=== PATIENT | male | born 1970 | race Two or more races ===

== ENCOUNTER 2022-11-11 13:09 | Inpatient (IN) | payer MEDICAID, OTHER ==
[~2022-11-11] VITALS: Ht 167.6 cm; Wt 118.3 kg
[2022-11-11 13:58] LABS: Calcium 9.5 mg/dL (8.5-10.1); Potassium 4.8 mmol/L (3.5-5.1)
[2022-11-11 14:01] LABS: BUN/Creatinine Ratio 15.7; Bilirubin, Total 0.4 mg/dL (0.2-1.0); Total Protein 7.8 g/dL (6.4-8.2)
[2022-11-11 14:28] LABS: Hematocrit 42.5 % (41.0-53.0); Mean Corpuscular Hemoglobin 27.4 pg (28.0-32.0); Mean Corpuscular Hgb Conc. 32.8 g/dL (32.0-36.0); Mean Corpuscular Volume 83.5 fL (80.0-100.0); Red Blood Cells 5.09 10^6/uL (4.5-5.90); Red Cell Distribution Width 17.1 % (11.8-14.3)
[2022-11-11 14:44] LABS: White Blood Cell 85.3 10^3/uL (4.4-10.8)
[2022-11-11 14:45] LABS: Basophils % (manual) 0 (0.0-2.0); Promyelocytes % 0
[2022-11-11] MEDS ORDERED: LISINOPRIL 10 MG TAB PO ONE (17:45)
[2022-11-11] MEDS ORDERED: ONDANSETRON HCL 4 MG/2 ML VIAL IV PRN (17:45)
[2022-11-11] MEDS ORDERED: HYDROcodone-ACET 5/325MG TAB PO PRN (17:45)
[2022-11-11] MEDS ORDERED: ACETAMINOPHEN 325 MG TAB PO PRN (17:45)
[2022-11-11] MEDS ORDERED: DOCUSATE SOD 100 MG CAP PO PRN (17:45)
[2022-11-11 19:30] LABS: Eosinophils % (manual) 2 (0-7); Lymphocytes % (manual) 5 (10.0-50.0); Metamyelocytes % 9; Monocytes % (manual) 10 (0-12); Myelocytes % 4
[2022-11-11 19:31] LABS: Reactive Lymphocytes 6
[2022-11-11 19:32] LABS: Band Neutrophils % (manual) 23; Blast Cells 4
[2022-11-11] MEDS: SODIUM CHLOR 0.9% PF (SALINE LOCK) 10ML VIAL/SYR IV SCH (22:35)
[2022-11-12 01:31] LABS: Urine Bacteria NONE SEEN /hpf (None Seen); Urine Blood Negative /uL (Negative); Urine Mucus FEW (None Seen); Urine Specific Gravity 1.019 (1.001-1.035); Urine WBC 1 /hpf (0 - 3)
[2022-11-12 05:57] LABS: Mean Corpuscular Volume 84.1 fL (80.0-100.0)
[2022-11-12 06:02] LABS: Hematocrit 40.4 % (41.0-53.0); Hemoglobin 13.7 g/dL (13.5-17.5); Mean Corpuscular Hemoglobin 28.4 pg (28.0-32.0); Mean Corpuscular Hgb Conc. 33.8 g/dL (32.0-36.0); Red Blood Cells 4.81 10^6/uL (4.5-5.90); Red Cell Distribution Width 17.5 % (11.8-14.3)
[2022-11-12] MEDS: SODIUM CHLOR 0.9% PF (SALINE LOCK) 10ML VIAL/SYR IV SCH ×3 (06:02→22:00)
[2022-11-12 06:15] LABS: Calcium 9.2 mg/dL (8.5-10.1); Potassium 4.6 mmol/L (3.5-5.1)
[2022-11-12 06:18] LABS: BUN/Creatinine Ratio 15.1; Bilirubin, Total 0.6 mg/dL (0.2-1.0); Total Protein 7.7 g/dL (6.4-8.2)
[2022-11-12 06:35] LABS: White Blood Cell 83.9 10^3/uL (4.4-10.8)
[2022-11-12 06:37] LABS: Blast Cells 0; Reactive Lymphocytes 0
[2022-11-12 08:05] LABS: Band Neutrophils % (manual) 17; Basophils % (manual) 4 (0.0-2.0); Eosinophils % (manual) 3 (0-7); Lymphocytes % (manual) 6 (10.0-50.0); Metamyelocytes % 5; Monocytes % (manual) 5 (0-12); Myelocytes % 4; Promyelocytes % 5
[2022-11-12] MEDS: PANTOPRAZOLE 40 MG/10 ML VIAL INJ IV SCH (11:15)
[2022-11-12] MEDS: LISINOPRIL 10 MG TAB PO SCH (11:33)
[2022-11-12 14:56] VITALS: BP 135/81
[2022-11-12 17:00] VITALS: BP 138/80
[2022-11-12 22:00] VITALS: BP 130/80
[2022-11-13 05:00] VITALS: BP 143/87
[2022-11-13] MEDS: SODIUM CHLOR 0.9% PF (SALINE LOCK) 10ML VIAL/SYR IV SCH ×3 (06:00→21:23)
[2022-11-13 06:10] LABS: Red Cell Distribution Width 17.3 % (11.8-14.3)
[2022-11-13 06:15] LABS: Potassium 3.9 mmol/L (3.5-5.1)
[2022-11-13 06:17] LABS: Hematocrit 40.8 % (41.0-53.0); Hemoglobin 13.6 g/dL (13.5-17.5); Mean Corpuscular Hemoglobin 27.7 pg (28.0-32.0); Mean Corpuscular Hgb Conc. 33.2 g/dL (32.0-36.0); Mean Corpuscular Volume 83.4 fL (80.0-100.0)
[2022-11-13 06:28] LABS: Albumin 3.7 g/dL (3.4-5.0); Bilirubin, Total 0.5 mg/dL (0.2-1.0); Total Protein 7.7 g/dL (6.4-8.2)
[2022-11-13 06:36] LABS: White Blood Cell 83.3 10^3/uL (4.4-10.8)
[2022-11-13 06:38] LABS: Basophils % (manual) 0 (0.0-2.0); Reactive Lymphocytes 0
[2022-11-13 09:00] VITALS: BP 146/84
[2022-11-13 09:13] LABS: Band Neutrophils % (manual) 12; Blast Cells 1; Eosinophils % (manual) 2 (0-7); Lymphocytes % (manual) 11 (10.0-50.0); Metamyelocytes % 11; Monocytes % (manual) 4 (0-12); Myelocytes % 2; Promyelocytes % 4
[2022-11-13 09:29] LABS: INR 1.03 (0.9-1.15); Partial Thromboplastin Time 28.8 sec (24.6-33.4)
[2022-11-13] MEDS: LISINOPRIL 10 MG TAB PO SCH (09:30)
[2022-11-13] MEDS: PANTOPRAZOLE 40 MG/10 ML VIAL INJ IV SCH (09:30)
[2022-11-13 13:00] VITALS: BP 143/92
[2022-11-13 17:00] VITALS: BP 141/79
[2022-11-13 22:00] VITALS: BP 124/65
[2022-11-14 05:00] VITALS: BP 126/75
[2022-11-14] MEDS: SODIUM CHLOR 0.9% PF (SALINE LOCK) 10ML VIAL/SYR IV SCH ×3 (05:28→22:53)
[2022-11-14 06:43] LABS: Hematocrit 40.6 % (41.0-53.0); Hemoglobin 13.3 g/dL (13.5-17.5); Mean Corpuscular Hemoglobin 27.5 pg (28.0-32.0); Mean Corpuscular Hgb Conc. 32.8 g/dL (32.0-36.0); Mean Corpuscular Volume 83.7 fL (80.0-100.0); Red Blood Cells 4.85 10^6/uL (4.5-5.90); Red Cell Distribution Width 17.2 % (11.8-14.3)
[2022-11-14 06:47] LABS: White Blood Cell 86.3 10^3/uL (4.4-10.8)
[2022-11-14 06:48] LABS: Basophils % (manual) 0 (0.0-2.0); Promyelocytes % 0; Reactive Lymphocytes 0
[2022-11-14 06:49] LABS: Calcium 9.2 mg/dL (8.5-10.1); Potassium 3.8 mmol/L (3.5-5.1)
[2022-11-14 06:51] LABS: BUN/Creatinine Ratio 19.8
[2022-11-14 08:50] LABS: Band Neutrophils % (manual) 24; Blast Cells 2; Eosinophils % (manual) 1 (0-7); Lymphocytes % (manual) 8 (10.0-50.0); Metamyelocytes % 5; Monocytes % (manual) 4 (0-12); Myelocytes % 9
[2022-11-14 09:00] VITALS: BP 135/88
[2022-11-14] MEDS: PANTOPRAZOLE 40 MG/10 ML VIAL INJ IV SCH (11:00)
[2022-11-14] MEDS: LISINOPRIL 10 MG TAB PO SCH (11:03)
[2022-11-14 13:00] VITALS: BP 118/78
[2022-11-14 17:00] VITALS: BP 116/76
[2022-11-14 22:00] VITALS: BP 114/60
[2022-11-15 05:00] VITALS: BP 124/77
[2022-11-15 07:02] LABS: Hematocrit 40.1 % (41.0-53.0); Red Cell Distribution Width 17.2 % (11.8-14.3)
[2022-11-15 07:06] LABS: Hemoglobin 13.6 g/dL (13.5-17.5); Mean Corpuscular Hemoglobin 28.3 pg (28.0-32.0); Mean Corpuscular Hgb Conc. 33.8 g/dL (32.0-36.0); Mean Corpuscular Volume 83.6 fL (80.0-100.0)
[2022-11-15 07:18] LABS: BUN/Creatinine Ratio 20.9; Calcium 9.3 mg/dL (8.5-10.1); Potassium 4.2 mmol/L (3.5-5.1)
[2022-11-15] MEDS: SODIUM CHLOR 0.9% PF (SALINE LOCK) 10ML VIAL/SYR IV SCH (07:18)
[2022-11-15 07:21] LABS: White Blood Cell 81.8 10^3/uL (4.4-10.8)
[2022-11-15 07:23] LABS: Basophils % (manual) 0 (0.0-2.0); Promyelocytes % 0; Reactive Lymphocytes 0
[2022-11-15 09:00] VITALS: BP 121/82
[2022-11-15] MEDS: LISINOPRIL 10 MG TAB PO SCH (09:28)
[2022-11-15] MEDS: PANTOPRAZOLE 40 MG/10 ML VIAL INJ IV SCH (09:30)
[2022-11-15] MEDS ORDERED: LIDOCAINE 2% (LOCAL ANESTH.) PF 5ml SDV ONE (10:24)
[2022-11-15] MEDS ORDERED: MIDAZOLAM HCL 2MG/2ML 2ml VIAL (1mg/ml) IV ONE (10:30)
[2022-11-15] MEDS ORDERED: fentaNYL CITRATE 100 MCG/2 ML VL IV ONE (10:30)
[2022-11-15 13:00] VITALS: BP 123/71
[2022-11-15 14:04] VITALS: BP 121/82
[2022-11-15 14:39] LABS: Band Neutrophils % (manual) 20; Blast Cells 2; Eosinophils % (manual) 3 (0-7); Lymphocytes % (manual) 11 (10.0-50.0); Metamyelocytes % 4; Monocytes % (manual) 3 (0-12); Myelocytes % 10
== END 2022-11-15 15:27 | disposition home or self-care (01) | DRG 841 ==
LOC: ER 13:13 → OVERFLOW 17:36 → EAST 11-12 14:26 → CENTRAL 11-12 16:33
PROVIDERS: ADMIT Nurse Practitioner Family; ATTEND Internal Medicine Pulmonary Disease
PROC: 079T3ZX Drainage of Bone Marrow, Percutaneous Approach, Diagnostic (ICD-10-PCS; principal; 2022-11-15)
PROC: 07DR3ZX Extraction of Iliac Bone Marrow, Percutaneous Approach, Diagnostic (ICD-10-PCS; 2022-11-15)
DX: C95.90 Leukemia, unspecified not having achieved remission (principal); Z68.41 Body mass index [BMI] 40.0-44.9, adult; I10 Essential (primary) hypertension; D75.839 Thrombocytosis, unspecified; E66.01 Morbid (severe) obesity due to excess calories; Z20.822 Contact with and (suspected) exposure to COVID-19; Z83.3 Family history of diabetes mellitus
CPT/HCPCS: 10005; 36415; 71045; 72192; 77012; 80048; 80053; 81001; 82668; 83615; 85007; 85027; 85610; 85730; 87426; C9113; G0378; J2001; J2250

== ENCOUNTER 2024-11-06 19:13 | Inpatient (IN) | payer MEDICAID ==
[~2024-11-06] VITALS: Ht 167.6 cm; Wt 125.7 kg
--- NOTE | 2024-11-06 19:40 | ED.PDOC ---
GI ASSESSMENT HPI Comments 54 y/o M, with PMHX of HTN, HLD, A-FIB and leukemia presents to the ED for CC of abdominal pain. Patient states, he has been experiencing diffuse abdominal pain with associated symptoms of nausea and vomiting since 1600 today (11/06/24). Patient comments on current 05/03 pain. Patient denies back pain, flank pain, dysuria, hematuria, or diarrhea. No other symptoms or modifying factors at this time. Time Seen by MD: 19:30 Primary Care Provider: NONE Reviewed Notes: Nurses Notes, Medications, Allergies Allergies: Coded Allergies: NO KNOWN ALLERGIES (Unverified , 11/11/22) Home Meds Unable to Obtain Active Prescriptions or Reported Meds Information Source: Patient Mode of Arrival: Ambulatory Timing: Hours Duration: Since onset Prehospital treatment: None Quality: None Vomitus: Watery Severity: Moderate Recent: None Pain Location: Diffuse Modifying Factors: Nothing Associated sign and symptoms: Nausea, Vomiting Past Medical History PAST MEDICAL HISTORY: AFIB, Cancer, High Lipids, HTN Surgical History: Appendectomy Family History Family History: Family hx of DM Social History Smoker: Non-Smoker Alcohol: Denies ETOH Use Drugs: Denies Drug Use Lives In: Home Constitutional: denies: chills, diaphoresis, fatigue, fever, malaise, sweats, weakness, others EENTM: denies: blurred vision, double vision, ear bleeding, ear discharge, ear drainage, ear pain, ear ringing, eye pain, eye redness, hearing loss, mouth pain, mouth swelling, nasal discharge, nose bleeding, nose congestion, nose pain, photophobia, tearing, throat pain, throat swelling, voice changes, others Respiratory: denies: cough, hemoptysis, orthopnea, SOB at rest, shortness of breath, SOB with excertion, stridor, wheezing, others Cardiovascular: denies: chest pain, dizzy spells, diaphoresis, Dyspnea on exertion, edema, irregular heart beat, left arm pain, lightheadedness, palpitati ons, PND, syncope, others Gastrointestinal: reports: abdominal pain; denies: abdomen distended, blood streaked bowels, constipated, diarrhea, dysphagia, difficulty swallowing, hematemesis, melena, nausea, poor appetite, poor fluid intake, rectal bleeding, rectal pain, vomiting, others Genitourinary: denies: burning, dysuria, flank pain, frequency, hematuria, incontinence, penile discharge, penile sore, pain, testicle pain, testicle swelling, urgency, others Neurological: denies: dizziness, fainting, headache, left sided numbness, left sided weakness, numbness, paresthesia, pre-existing deficit, right sided numbness, right sided weakness, seizure, speech problems, tingling, tremors, weakness, others Musculoskeletal: denies: back pain, gout, joint pain, joint swelling, muscle pa in, muscle stiffness, neck pain, others Integumetry: denies: bruises, change in color, change in hair/nails, dryness, laceration, lesions, lumps, rash, wounds, others Allergic/Immunocompromised: denies: Difficulty Healing, Frequent Infections, Hives, Itching, others Hematologic/Lymphatic: denies: anemia, blood clots, easy bleeding, easy bruising, swollen glands, others Endocrine: denies: excessive hunger, excessive sweating, excessive thirst, excessive urination, flushing, intolerance to cold, intolerance to heat, unexplained weight gain, unexplained weight loss, others Psychiatric: denies: anxiety, bipolar disorder, depression, hopeless, panic disorder, schizophrenia, sleepless, suicidal, others All Other Systems: Reviewed and Negative Physical Exam General Appearance: Moderate Distress HEENT: Normal ENT Inspection, Pharynx Normal, TMs Normal Neck: Full Range of Motion, Non-Tender, Normal, Normal Inspection Respiratory: Chest Non-Tender, Lungs Clear, No Accessory Muscle Use, No Respiratory Distress, Normal Breath Sounds Cardiovascular: No Edema, No JVD, No Murmur, No Gallop, Normal Peripheral Pulses, Regular Rate/Rhythm Breast Exam: Deferred Gastrointestinal: Epigastric, No Organomegaly, No Pulsatile Mass, Normal Bowel Sounds, Soft, Tenderness Genitalia: Deferred Pelvic: Deferred Rectal: Deferred Extremities: No calf tenderness, Normal capillary refill, Normal inspection, Normal range of motion, Non-tender, No pedal edema Musculoskeletal : Apperance: Normal Neurologic: Alert, seasonal clerk II-XII nml as Tested, No Motor Deficits, Normal Affect, Normal Mood, No Sensory Deficits Cerebellar Function: Normal Reflexes: Normal Skin: Dry, Normal Color, Warm Lymphatic: No Adenopathy Was a procedure done? Was a procedure done?: No GI differential Dx Differential Diagnosis: Bowel Obstruction, Cholangitis, Cholecystitis, Constip ation, Gastritis/PUD, Gastroenteritis, Electrolyte Imbalance, Food Poisoning, Bacterial, Viral X-Ray, Labs, Meds, VS Vital Signs Date Time Temp Pulse Resp B/P (MAP) Pulse Ox O2 Delivery O2 Flow Rate FiO2 11/06/24 21:02 98.4 66 18 120/63 (82) 96 98.4 11/06/24 21:02 66 18 96 Room Air 11/06/24 21:00 66 18 120/63 11/06/24 20:12 74 11/06/24 19:30 98.9 73 16 132/45 (74) 95 Lab Test 11/06/24 20:52 Range/Units White Blood Count Pending Red Blood Count Pending Hemoglobin Pending Hematocrit Pending Mean Corpuscular Volume Pending Mean Corpuscular Hemoglobin Pending Mean Corpuscular Hemoglobin Concent Pending Red Cell Distribution Width Pending Platelet Count Pending Mean Platelet Volume Pending Neutrophils (%) (Auto) Pending Lymphocytes (%) (Auto) Pending Monocytes (%) (Auto) Pending Basophils (%) (Auto) Pending Neutrophils # (Auto) Pending Lymphocytes # (Auto) Pending Monocytes # (Auto) Pending Sodium Level Pending Potassium Level Pending Chloride Level Pending Carbon Dioxide Level Pending Anion Gap Pending Blood Urea Nitrogen Pending Creatinine Pending Glomerular Filtration Rate Calc Pending BUN/Creatinine Ratio Pending Serum Glucose Pending Calcium Level Pending Total Bilirubin Pending Aspartate Amino Transferase (AST) Pending Alanine Aminotransferase (ALT) Pending Alkaline Phosphatase Pending Total Protein Pending Albumin Pending Lipase Pending Current Medications Medications (Trade) Dose Ordered Sig/Caroline Route Start Time Stop Time Status Last Admin Morphine Sulfate 4 mg ONCE ONCE IV 11/06/24 19:45 11/06/24 19:46 DC 11/06/24 21:00 Sodium Chloride 500 ml @ 500 mls/hr Q1H ONCE IVB 11/06/24 19:45 11/06/24 20:44 DC 11/06/24 20:58 Pantoprazole Sodium (Protonix) 40 mg ONCE ONCE IV 11/06/24 19:45 11/06/24 19:46 DC 11/06/24 20:59 Ondansetron HCl (Zofran) 4 mg ONCE ONCE IV 11/06/24 19:45 11/06/24 19:46 DC 11/06/24 20:59 GALLBLADDER US: FINDINGS: Increased echogenicity of the hepatic parenchyma suggesting steat osis.. The liver measures 14.8 cm. No intrahepatic biliary ductal dilatation is noted. The gallbladder wall measures 0.32 cm and is unremarkable. No gallstones mobile sludge is noted in the gallbladder.. The common duct measures 0.56 cm and is unremarkable. No pericholecystic fluid is noted. The right kidney measures 11.6 cm. No hydronephrosis. The pancreas is not well visualized due to obscuration from bowel gas. IMPRESSION: 1. Sludge noted in the gallbladder with a negative ultrasound Estrella's sign. 2. Liver measures 14 0.8 cm in length with parenchymal changes suggesting steatosis. HS:Y ATED BY: WOODY GEIGER Jr., DO DICTATED DATE/TIME: 11/06/242022 SIGNED BY: WOODY GEIGER Jr., SIGNED DATE/TIME: 11/06/242022 CC: The patient was being admitted at this time The patient was given morphine for the pain The patient was given Zofran 4 mg IV push for the nausea The patient was given Protonix 40 mg IV push The patient was being admitted at this time Images Reviewed?: Images reviewed and evaluated by me Time of 1ST Reevaluation: 20:00 Reevaluation 1ST: Unchanged Patient Education/Counseling: Diagnosis, Treatment, Prognosis Family Education/Counseling: No Family Present Additional Information - I reviewed the following notes from patient's past medical encounters: 11/11/24 DX: LEUKOCYTOSIS - The following tests were ordered, and results were reviewed by me: CBC, CMP, LIPASE, UA, GALLBLADDER US - I reviewed and agreed with the following test results read by other provider: GALLBLADDER US - I discussed treatments and results with medical personnel and: PATIENT Departure 1 Departure Time of Disposition: 21:09 Impression: Primary Impression: Intractable abdominal pain Additional Impression: Cholelithiasis Qualified Codes: K80.20 - Calculus of gallbladder without cholecystitis without obstruction Disposition: ADMITTED INPATIENT Admit to: Med Surg Condition: Fair e-Prescriptions Unable to Obtain Active Prescriptions or Reported Meds Critical Care Note Critical Care Time?: No Stability Stability form required: Yes Unstable for transfer: ED Physician Assesment (Clinical assesment) Heart Score Heart Score: Heart Score Response (Comments) Value History N/A 0 EKG N/A 0 Age N/A 0 Risk Factors N/A 0 Troponin N/A 0 Total 0 I personally scribed for LIZBETH ZHOU MD ([email or web address]) on 11/06/24 at 19:40. Electronically submitted by Jolynn Dunn ([email or web address]). I personally scribed for LIZBETH ZHOU MD ([email or web address]) on 11/06/24 at 19:41. Electronically submitted by Jolynn Dunn ([email or web address]). I personally scribed for LIZBETH ZHOU MD ([email or web address]) on 11/06/24 at 19:47. Electronically submitted by Jolynn Dunn ([email or web address]). I personally scribed for LIZBETH ZHOU MD ([email or web address]) on 11/06/24 at 20:08. Electronically submitted by Jolynn Dunn ([email or web address]). I personally scribed for LIZBETH ZHOU MD ([email or web address]) on 11/06/24 at 20:45. Electronically submitted by Jolynn Dunn ([email or web address]). LIZBETH ZHOU MD Nov 06, 2024 19:40
--- NOTE | 2024-11-06 20:25 | DVH ---
INDICATION: pain TECHNIQUE: Multiple real-time sonographic images of the abdomen were obtained. COMPARISON: None FINDINGS: Increased echogenicity of the hepatic parenchyma suggesting steatosis.. The liver measures 14.8 cm. No intrahepatic biliary ductal dilatation is noted. The gallbladder wall measures 0.32 cm and is unremarkable. No gallstones mobile sludge is noted in the gallbladder.. The common duct measures 0.56 cm and is unremarkable. No pericholecystic fluid is noted. The right kidney measures 11.6 cm. No hydronephrosis. The pancreas is not well visualized due to obscuration from bowel gas. IMPRESSION: 1. Sludge noted in the gallbladder with a negative ultrasound Estrella's sign. 2. Liver measures 14 0.8 cm in length with parenchymal changes suggesting steatosis. HS:Y
[2024-11-06] MEDS: SODIUM CHLORIDE 0.9% 500 ML IVB ONE (20:58)
[2024-11-06] MEDS: ONDANSETRON HCL 4 MG/2 ML VIAL IV ONE (20:59)
[2024-11-06] MEDS: PANTOPRAZOLE 40 MG/10 ML VIAL INJ IV ONE (20:59)
[2024-11-06] MEDS: MORPHINE SULFATE 4 MG/ML SYR/VIAL IV ONE (21:00)
[2024-11-06 21:01] LABS: Basophils # (auto) 0 10 ^3/uL (0-0.2); Basophils % (auto) 0.4 % (0.0-2.0); Eosinophils # (auto) 0 10 ^3/uL (0-0.8); Eosinophils % (auto) 0.3 % (0.0-7.0); Hematocrit 38.4 % (41.0-53.0); Hemoglobin 12.8 g/dL (13.5-17.5); Lymphocytes # (auto) 1.6 10 ^3/uL (0.4-5.4); Lymphocytes % (auto) 15.7 % (10.0-50.0); Mean Corpuscular Hemoglobin 28.9 pg (28.0-32.0); Mean Corpuscular Hgb Conc. 33.3 g/dL (32.0-36.0); Mean Corpuscular Volume 86.8 fL (80.0-100.0); Monocytes # (auto) 0.4 10 ^3/uL (0-1.3); Monocytes % (auto) 3.5 % (0.0-12.0); Neutrophils # (auto) 8.2 10 ^3/uL (1.6-8.6); Neutrophils % (auto) 80.1 % (37.0-80.0); Platelet Count (auto) 212 10^3/uL (140-450); Red Blood Cells 4.43 10^6/uL (4.5-5.90); Red Cell Distribution Width 15.2 % (11.8-14.3); White Blood Cell 10.2 10^3/uL (4.4-10.8)
[2024-11-06 21:21] LABS: Alanine Aminotransferase 28 U/L (7-40); Alkaline Phosphatase 95 U/L (46-116); Anion Gap 9 (5-15); Aspartate Aminotransferase 16 U/L (13-40); BUN/Creatinine Ratio 15.6 (10.0-20.0); Bilirubin, Total 0.6 mg/dL (0.2-1.0); Blood Urea Nitrogen 17 mg/dL (9-23); Carbon Dioxide 23 mmol/L (20-31); Chloride 105 mmol/L (98-107); Lipase 43 U/L (12-53); Potassium 4.1 mmol/L (3.5-5.1); Sodium 137 mmol/L (136-145); Total Protein 8.1 g/dL (5.7-8.2)
[2024-11-06 21:23] LABS: Urine Bacteria None Seen /hpf (None Seen)
[2024-11-06 21:52] LABS: Urine Blood Negative /uL (Negative); Urine Clarity Clear (Clear); Urine Color Light-Yellow (Yellow); Urine Protein, UAD 1+ (Negative); Urine Squamous Epithelial Cell FEW /hpf (<5); Urine Urobilinogen Normal (Negative); Urine WBC 2 /HPF (0-3); Urine pH 5.5 (5.0-9.0)
[2024-11-06 21:52] LABS: Albumin 5.2 g/dL (3.2-4.8); Calcium 10.6 mg/dL (8.7-10.4); Glucose 135 mg/dL (74-106)
[2024-11-06] MEDS ORDERED: MORPHINE SULFATE INJ 2 MG/ml SYRG IV PRN ×2 (22:00→22:45)
[2024-11-06] MEDS ORDERED: DOCUSATE SOD 100 MG CAP PO PRN (22:00)
[2024-11-06] MEDS ORDERED: ACETAMINOPHEN 325 MG TAB PO PRN (22:00)
[2024-11-06] MEDS ORDERED: HYDROcodone-ACET 5/325MG TAB PO PRN (22:00)
[2024-11-06] MEDS ORDERED: ONDANSETRON HCL 4 MG/2 ML VIAL IV PRN (22:00)
[2024-11-06] MEDS ORDERED: NITROGLYCERIN 0.4 MG SL TAB SL PRN (22:45)
--- NOTE | 2024-11-06 22:46 | DVHHP2 ---
History of Present Illness Reason for Visit: Intractable abdominal pain History of Present Illness The patient is a 54-year-old male with past medical history of AFib, leukemia, hypertension, and hyperlipidemia who presented to [facility] ED with complaint of abdominal pain. Patient reports he has been experiencing diffuse abdominal pain, associated nausea and vomiting, rating pain 8/10 numeric scale, getting worse that prompted this visit. Patient was seen and evaluated in the ED, laboratory data shows WBC 10.2, hemoglobin 12.8, hematocrit 38.4, platelets 212. Gallbladder ultrasound revealing sludge noted in the gallbladder with a negative ultrasound Estrella's sign; liver measures 14.8 cm in length with parenchymal changes suggesting steatosis. Patient was given IV morphine 4 mg x 1, please see medication orders section in the computer. On my assessment, patient denied abdomen pain at this moment, no headache, no dizziness, no nausea, no vomiting, no fever, no chills. Patient was admitted for further evaluation and medical management. 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 Past Social History The patient lives at home, denies smoking, alcohol or illicit drugs abuse. Review of Systems Constitutional: No: Fever, Chills, Sweats, Weakness, Malaise, Other Eyes: No: Pain, Vision change, Conjunctivae inflammation, Eyelid inflammation, Other, Redness ENT: No: Ear pain, Ear discharge, Nose pain, Nose discharge, Nose congestion, Mouth pain, Mouth swelling, Throat pain, Throat swelling, Other Respiratory: No: Cough, Dry, Shortness of breath, SOB with excertion, Wheezing, Hemoptysis, Pleuritic Pain, Sputum, Wheezing, Other Cardiovascular: No: Chest Pain, Palpitations, Orthopnea, Paroxysmal Noc. Dyspnea, Edema, Lt Headedness, Other Gastrointestinal: Nausea, Vomiting, Abdominal Pain; No: Diarrhea, Constipation, Melena, Hematochezia, Other Genitourinary: No Dysuria, No Frequency, No Incontinence, No Hematuria, No Retention, No Other Musculoskeletal: No: other, neck pain, shoulder pain, arm pain, back pain, hand pain, leg pain, foot pain Skin: No: Rash, Lesions, Jaundice, Bruising, Other Neurological: No: Weakness, Numbness, Incoordination, Change in speech, Confusion, Seizures, Other Allergies: Coded Allergies: NO KNOWN ALLERGIES (Unverified , 11/11/22) Medications Current Medications Medications Dose Ordered Sig/Caroline Route Start Time Stop Time Status Last Admin Dose Admin Pantoprazole Sodium 40 mg DAILY IV 11/07/24 10:00 Acetaminophen/ Hydrocodone Bitart 1 tab Q4HP PRN PO 11/06/24 22:00 Ondansetron HCl 4 mg Q4HP PRN IV 11/06/24 22:00 Docusate Sodium 100 mg BIDPRN PRN PO 11/06/24 22:00 Acetaminophen 650 mg Q6HP PRN PO 11/06/24 22:00 Morphine Sulfate 2 mg Q4HPRN PRN IV 11/06/24 22:00 Exam Vital Signs Vital Signs Date Time Temp Pulse Resp B/P (MAP) Pulse Ox O2 Delivery O2 Flow Rate FiO2 11/06/24 22:10 97.8 57 16 130/71 (90) 98 97.8 11/06/24 21:02 Room Air General Appearance: Alert, Oriented X3, Cooperative, No acute distress HEENT: Atraumatic, PERRLA, EOMI, Mucous membr. moist/pink Respiratory: Clear to auscultation, Normal air movement Cardiovascular: Regular rate, Normal S1, Normal S2, No murmurs Abdominal: Normal bowel sounds, Soft, No hepatospenomegaly, No masses, Other (Reports tenderness) Extremities: No clubbing, No cyanosis, No edema, Normal pulses, No tenderness/swelling Skin: No rashes, No breakdown, No significant lesion Neuro: Normal gait, Normal speech, Strength at 5/5 X4 ext, Normal tone, Sensation intact, Cranial nerves 3-12 NL, Reflexes 2+ Psych/Mental Status: Mental status NL, Mood NL Labs/Xrays Labs Test 11/06/24 21:36 11/06/24 21:22 11/06/24 20:52 Range/Units POC Glucose 159 H 70-106 mg/dl Urine Color Light-yellow Yellow Urine Clarity Clear Clear Urine pH 5.5 5.0-9.0 Urine Specific [place] 1.030 1.001-1.035 Urine Protein 1+ H Negative Urine Ketones Negative Negative Urine Blood Negative Negative /uL Urine Nitrite Negative Negative Urine Bilirubin Negative Negative Urine Urobilinogen Normal Negative mg/dL Urine Leukocyte Esterase Negative Negative /uL Urine RBC <1 0 - 3 /hpf Urine Microscopic WBC 2 0-3 /HPF Urine Squamous Epithelial Cells Few <5 /hpf Urine Bacteria None seen None Seen /hpf Urine Glucose 4+ H Normal mg/dL White Blood Count 10.2 4.4-10.8 10^3/uL Red Blood Count 4.43 L 4.5-5.90 10^6/uL Hemoglobin 12.8 L 13.5-17.5 g/dL Hematocrit 38.4 L 41.0-53.0 % Mean Corpuscular Volume 86.8 80.0-100.0 fL Mean Corpuscular Hemoglobin 28.9 28.0-32.0 pg Mean Corpuscular Hemoglobin Concent 33.3 32.0-36.0 g/dL Red Cell Distribution Width 15.2 H 11.8-14.3 % Platelet Count 212 140-450 10^3/uL Mean Platelet Volume 7.3 6.9-10.8 fL Neutrophils (%) (Auto) 80.1 H 37.0-80.0 % Lymphocytes (%) (Auto) 15.7 10.0-50.0 % Monocytes (%) (Auto) 3.5 0.0-12.0 % Eosinophils (%) (Auto) 0.3 0.0-7.0 % Basophils (%) (Auto) 0.4 0.0-2.0 % Neutrophils # (Auto) 8.2 1.6-8.6 10 ^3/uL Lymphocytes # (Auto) 1.6 0.4-5.4 10 ^3/uL Monocytes # (Auto) 0.4 0-1.3 10 ^3/uL Eosinophils # (Auto) 0 0-0.8 10 ^3/uL Basophils # (Auto) 0 0-0.2 10 ^3/uL Nucleated Red Blood Cells 0.0 % Sodium Level 137 136-145 mmol/L Potassium Level 4.1 3.5-5.1 mmol/L Chloride Level 105 98-107 mmol/L Carbon Dioxide Level 23 20-31 mmol/L Anion Gap 9 5-15 Blood Urea Nitrogen 17 9-23 mg/dL Creatinine 1.09 0.700-1.30 mg/dL Glomerular Filtration Rate Calc 80 >90 mL/min BUN/Creatinine Ratio 15.6 10.0-20.0 Serum Glucose 135 H 74-106 mg/dL Calcium Level 10.6 H 8.7-10.4 mg/dL Total Bilirubin 0.6 0.2-1.0 mg/dL Aspartate Amino Transferase (AST) 16 13-40 U/L Alanine Aminotransferase (ALT) 28 7-40 U/L Alkaline Phosphatase 95 46-116 U/L Total Protein 8.1 5.7-8.2 g/dL Albumin 5.2 H 3.2-4.8 g/dL Lipase 43 12-53 U/L PATIENT: GABRIEL QUINONES ACCT: [id number] UNIT: [id number] : 1970 LOC: ER ROOM / BED: / AGE / SEX: 54 / M ADM STATUS: REG ER SERVICE 33 ORDERING PHYSICIAN: LIZEBTH ZHOU MD PROCEDURE(s): GBUS - GALLBLADDER REASON: pain ORDER NUMBER(s): [id number], ACCESSION NUMBER(s): [id number] INDICATION: pain TECHNIQUE: Multiple real-time sonographic images of the abdomen were obtained. COMPARISON: None FINDINGS: Increased echogenicity of the hepatic parenchyma suggesting steatosis. The liver measures 14.8 cm. No intrahepatic biliary ductal dilatation is noted. The gallbladder wall measures 0.32 cm and is unremarkable. No gallstones mobile sludge is noted in the gallbladder. The common duct measures 0.56 cm and is unremarkable. No pericholecystic fluid is noted. The right kidney measures 11.6 cm. No hydronephrosis. The pancreas is not well visualized due to obscuration from bowel gas. IMPRESSION: 1. Sludge noted in the gallbladder with a negative ultrasound Estrella's sign. 2. Liver measures 14 0.8 cm in length with parenchymal changes suggesting steatosis. Assessment/Plan Assessment/Plan Intractable abdominal pain Cholelithiasis Calculus of gallbladder without cholecystitis without obstruction Plan 1. Admit to Med-Surg unit 2. Breathing treatment 3. Pain control management 4. Management of fluids and electrolytes 5. Consultation for hospitalist 6. Diagnostic tests gallbladder ultrasound 7. DVT prophylaxis-on SCDs 8. Repeat labs CBC, CMP in a.m. 9. Continue with current medical management 10. Treatment plan discussed with patient and RN. Patient verbalized understanding. Plan discussed with: Patient, Other (RN) My Orders Orders - BEST SHARMA DNP Procedure Category Date Status Time Pantoprazole PHA 11/07/24 In Process (Protonix) 10:00 Allergies HAKEME 11/06/24 In Process 21:59 Code Status CODE 11/06/24 Transmitted 21:59 Oxygen Per Hour RT 11/06/24 Transmitted 21:59 Hydrocodone-Acet PHA 11/06/24 In Process 5/325mg Tab ([place] 22:00 Ondansetron Hcl PHA 11/06/24 In Process (Zofran) 22:00 Docusate Sodium PHA 11/06/24 In Process Capsule (Colace 22:00 Complete Blood Count LAB 11/07/24 Verified 04:00 Comprehensive LAB 11/07/24 Verified Metabolic Panel 04:00 Condition: Serious HAKEEM 11/06/24 In Process 21:59 Acetaminophen Tablet PHA 11/06/24 In Process (Tylenol Tablet) 22:00 Clear Liq Diet DIET 11/07/24 Transmitted Breakfast Bedrest With Bathroom HAKEEM 11/06/24 In Process Privileg 21:59 Morphine Sulfate PHA 11/06/24 In Process Injection 22:00 Sequential HAKEEM 11/06/24 In Process Compression Device Problem List: (1) Intractable abdominal pain (2) Cholelithiasis (3) Calculus of gallbladder without cholecystitis without obstruction Date of Service: Nov 06, 2024 Billing Provider: BEST SHARMA DNP Common Visit Codes: 83285-IPZTOPY INP/OBS CARE (HIGH) BEST SHARMA DNP Nov 06, 2024 22:46
[2024-11-06 23:15] VITALS: BP 114/47; PULSE 79; RESP 18; TEMP 97.7; O2SAT 96
[2024-11-06] MEDS ORDERED: ATOR20TA50 PO (23:45)
[2024-11-06] MEDS ORDERED: AMLO1TAB22 PO (23:45)
[2024-11-06] MEDS ORDERED: DASA20TA PO (23:45)
[2024-11-06] MEDS ORDERED: MET25T PO (23:45)
[2024-11-06] MEDS ORDERED: LISI20TA56 PO (23:45)
[2024-11-06] MEDS ORDERED: SPIR25TA8 PO (23:45)
[2024-11-06] MEDS ORDERED: EMPA1TAB3 PO (23:45)
[2024-11-06] MEDS ORDERED: APIX5TAB PO (23:45)
[2024-11-07 01:00] VITALS: BP 112/46; PULSE 79; RESP 18; TEMP 97.6; O2SAT 98
[2024-11-07 04:33] VITALS: BP 116/52; PULSE 72; RESP 18; TEMP 97.6; O2SAT 98
[2024-11-07 08:45] LABS: Basophils # (auto) 0 10 ^3/uL (0-0.2); Basophils % (auto) 0.4 % (0.0-2.0); Eosinophils # (auto) 0.1 10 ^3/uL (0-0.8); Eosinophils % (auto) 0.8 % (0.0-7.0); Hematocrit 36.1 % (41.0-53.0); Lymphocytes # (auto) 1.7 10 ^3/uL (0.4-5.4); Lymphocytes % (auto) 26.9 % (10.0-50.0); Mean Corpuscular Hemoglobin 28.8 pg (28.0-32.0); Mean Corpuscular Hgb Conc. 33.2 g/dL (32.0-36.0); Mean Corpuscular Volume 86.9 fL (80.0-100.0); Monocytes # (auto) 0.5 10 ^3/uL (0-1.3); Monocytes % (auto) 7.9 % (0.0-12.0); Neutrophils # (auto) 4.1 10 ^3/uL (1.6-8.6); Platelet Count (auto) 211 10^3/uL (140-450); Red Blood Cells 4.16 10^6/uL (4.5-5.90); Red Cell Distribution Width 14.6 % (11.8-14.3); White Blood Cell 6.4 10^3/uL (4.4-10.8)
[2024-11-07] MEDS: PANTOPRAZOLE 40 MG/10 ML VIAL INJ IV SCH (08:57)
[2024-11-07 09:00] VITALS: BP 107/61; PULSE 65; RESP 18; TEMP 97.8; O2SAT 95
[2024-11-07 09:03] LABS: Alanine Aminotransferase 25 U/L (7-40); Albumin 4.8 g/dL (3.2-4.8); Alkaline Phosphatase 85 U/L (46-116); Anion Gap 10 (5-15); Aspartate Aminotransferase 14 U/L (13-40); BUN/Creatinine Ratio 15.8 (10.0-20.0); Bilirubin, Total 0.7 mg/dL (0.2-1.0); Blood Urea Nitrogen 15 mg/dL (9-23); Calcium 10.2 mg/dL (8.7-10.4); Carbon Dioxide 25 mmol/L (20-31); Chloride 104 mmol/L (98-107); Glucose 95 mg/dL (74-106); Potassium 3.9 mmol/L (3.5-5.1); Sodium 139 mmol/L (136-145); Total Protein 7.6 g/dL (5.7-8.2)
[2024-11-07] MEDS: ENOXAPARIN SOD 100 MG/1 ML SYRINGE SC SCH (09:10)
--- NOTE | 2024-11-07 09:20 | ECG ---
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
[2024-11-07 12:05] VITALS: BP 102/62; PULSE 92; RESP 16; TEMP 98; O2SAT 95
[2024-11-07 13:00] VITALS: BP 119/68; PULSE 72; RESP 14; TEMP 98.6; O2SAT 95
[2024-11-07] MEDS: DASATINIB 100 MG PO SCH (13:11)
--- NOTE | 2024-11-07 14:33 | DVHDSRES ---
Discharge Summary Date of Admission Resident Creating Document: JADEN CHAUDHARI RESIDENT Nov 06, 2024 at 22:45 Date of Discharge: Nov 07, 2024 Admitting Diagnosis Acute intractable abdominal pain Labs/Diagnostic Data: Laboratory Results Test 11/07/24 08:19 11/06/24 21:36 11/06/24 21:22 11/06/24 20:52 White Blood Count 6.4 10^3/uL (4.4-10.8) Red Blood Count 4.16 10^6/uL (4.5-5.90) Hemoglobin 12.0 g/dL (13.5-17.5) Hematocrit 36.1 % (41.0-53.0) Mean Corpuscular Volume 86.9 fL (80.0-100.0) Mean Corpuscular Hemoglobin 28.8 pg (28.0-32.0) Mean Corpuscular Hemoglobin Concent 33.2 g/dL (32.0-36.0) Red Cell Distribution Width 14.6 % (11.8-14.3) Platelet Count 211 10^3/uL (140-450) Mean Platelet Volume 7.3 fL (6.9-10.8) Neutrophils (%) (Auto) 64.0 % (37.0-80.0) Lymphocytes (%) (Auto) 26.9 % (10.0-50.0) Monocytes (%) (Auto) 7.9 % (0.0-12.0) Eosinophils (%) (Auto) 0.8 % (0.0-7.0) Basophils (%) (Auto) 0.4 % (0.0-2.0) Neutrophils # (Auto) 4.1 10 ^3/uL (1.6-8.6) Lymphocytes # (Auto) 1.7 10 ^3/uL (0.4-5.4) Monocytes # (Auto) 0.5 10 ^3/uL (0-1.3) Eosinophils # (Auto) 0.1 10 ^3/uL (0-0.8) Basophils # (Auto) 0 10 ^3/uL (0-0.2) Nucleated Red Blood Cells 0.0 % Sodium Level 139 mmol/L (136-145) Potassium Level 3.9 mmol/L (3.5-5.1) Chloride Level 104 mmol/L (98-107) Carbon Dioxide Level 25 mmol/L (20-31) Anion Gap 10 (5-15) Blood Urea Nitrogen 15 mg/dL (9-23) Creatinine 0.95 mg/dL (0.700-1.30) Glomerular Filtration Rate Calc 94 mL/min (>90) BUN/Creatinine Ratio 15.8 (10.0-20.0) Serum Glucose 95 mg/dL (74-106) Calcium Level 10.2 mg/dL (8.7-10.4) Total Bilirubin 0.7 mg/dL (0.2-1.0) Aspartate Amino Transferase (AST) 14 U/L (13-40) Alanine Aminotransferase (ALT) 25 U/L (7-40) Alkaline Phosphatase 85 U/L (46-116) Total Protein 7.6 g/dL (5.7-8.2) Albumin 4.8 g/dL (3.2-4.8) POC Glucose 159 mg/dl (70-106) Urine Color Light-yellow (Yellow) Urine Clarity Clear (Clear) Urine pH 5.5 (5.0-9.0) Urine Specific [place] 1.030 (1.001-1.035) Urine Protein 1+ (Negative) Urine Ketones Negative (Negative) Urine Blood Negative /uL (Negative) Urine Nitrite Negative (Negative) Urine Bilirubin Negative (Negative) Urine Urobilinogen Normal mg/dL (Negative) Urine Leukocyte Esterase Negative /uL (Negative) Urine RBC <1 /hpf (0 - 3) Urine Microscopic WBC 2 /HPF (0-3) Urine Squamous Epithelial Cells Few /hpf (<5) Urine Bacteria None seen /hpf (None Seen) Urine Glucose 4+ mg/dL (Normal) Lipase 43 U/L (12-53) Other Laboratory Tests 11/07/24 08:19 Brief Hx & Hospital Course: The patient is a 54-year-old male with past medical history of AFib, leukemia, hypertension, and hyperlipidemia who presented to [facility] ED with complaint of abdominal pain. Patient reports he has been experiencing diffuse abdominal pain, associated nausea and vomiting, rating pain 8/10 numeric scale, getting worse that prompted this visit. Patient was seen and evaluated in the ED, laboratory data shows WBC 10.2, hemoglobin 12.8, hematocrit 38.4, platelets 212. Gallbladder ultrasound revealing sludge noted in the gallbladder with a negative ultrasound Estrella's sign; liver measures 14.8 cm in length with parenchymal changes suggesting steatosis. Hospital course: Patient's pain significantly improved. No tenderness to palpation was noted in all quadrants of the abdomen. Diet was advanced to a regular diet which the patient tolerated without any nausea or vomiting. At the time of discharge, patient appeared well and had stable vital signs. Patient was instructed to follow up with surgery in the outpatient clinic for possible elective cholecystectomy. His hospital course was uncomplicated. General Appearance: Alert, Oriented X3, Cooperative, No acute distress HEENT: Atraumatic, PERRLA, EOMI, Mucous membr. moist/pink Respiratory: Clear to auscultation, Normal air movement Cardiovascular: Regular rate, Normal S1, Normal S2, No murmurs Abdominal: Normal bowel sounds, Soft, No hepatospenomegaly, No masses, Other (Reports tenderness) Extremities: No clubbing, No cyanosis, No edema, Normal pulses, No tenderness/swelling Skin: No rashes, No breakdown, No significant lesion Neuro: Normal gait, Normal speech, Strength at 5/5 X4 ext, Normal tone, Sensation intact, Cranial nerves 3-12 NL, Reflexes 2+ Psych/Mental Status: Mental status NL, Mood NL Condition at Discharge: Good Final Diagnosis/Problems List Acute intractable abdominal pain Biliary colic Gallbladder sludge Hepatic steatosis History of AFib Secondary hypercoagulable state secondary to above History of chronic myelogenous leukemia History of congestive heart failure, currently stable Discharge Disposition: Home Discharge Instruct/Medications Diet: Cardiac 2g Na,low cholest Follow Up/Referral: Please follow up with PCP in 1-2 weeks Please follow up with surgery in the outpatient clinic for possible elective cholecystectomy Discharge Statement: "Patient was advised to return to the ER or call 911 if any headaches, dizziness, shortness of breath, chest pain, abdominal pain, bleeding, fevers, or worsening of medical condition. Patient was counseled about treatment plan, medications, possible side effects, patientverbalized understanding. All questions were answered to the best of my ability. This discharge took greater then 30 minutes in planning, reviewing documentation, counseling the patient, and discussing with other team members." ASSESSMENT ASSESSMENT Assessment Date of Service: Nov 07, 2024 Billing Provider: TALITA HARRINGTON MD Common Visit Codes: 41837-XJK/OBS DISCH DAY >30min JADEN CHAUDHARI Nov 07, 2024 14:33 TALITA HARRINGTON MD Nov 11, 2024 16:09
--- NOTE | 2024-11-10 13:15 | ECG ---
[facility] Test Date: 2024-11-07 Test Time: 08:31:41 Pat Name: GABRIEL QUINONES Department: ED Room: [address] [place] [address] Gender: M Community Service Coordinator: KEO : 1970 Requested By: BROCK PASTOR Order Number: [id number] Reading MD: Montrell Swartz Measurements Intervals [place] Rate: 74 P: 26 DE: 173 QRS: 4 QRSD: 112 T: 11 QT: 399 QTc: 443 Interpretive Statements Sinus rhythm Borderline intraventricular conduction delay Abnormal R-wave progression, early transition Electronically Signed On 11-13-2024 21:15:48 PST by Montrell Swartz Please click the below link to view image of tracing.
== END 2024-11-07 15:30 | disposition home or self-care (01) ==
LOC: ER 19:13 → OVERFLOW 22:45
PROVIDERS: ADMIT Student in an Organized Health Care Education/Training Program; ATTEND Student in an Organized Health Care Education/Training Program
DX: K80.70 Calculus of gallbladder and bile duct without cholecystitis without obstruction (principal); D68.69 Other thrombophilia; I50.9 Heart failure, unspecified; I11.0 Hypertensive heart disease with heart failure; K76.0 Fatty (change of) liver, not elsewhere classified; E78.5 Hyperlipidemia, unspecified; I48.91 Unspecified atrial fibrillation; Z83.3 Family history of diabetes mellitus; Z85.6 Personal history of leukemia; Z79.899 Other long term (current) drug therapy
CPT/HCPCS: 36415; 76705; 80053; 81001; 82962; 83690; 85025; 93005; 96374; 96375; G0378; J2405; J2470

== ENCOUNTER 2024-11-23 12:33 | Inpatient (IN) | payer MEDICAID ==
[~2024-11-23] VITALS: Ht 167.6 cm; Wt 126.5 kg
[~2024-11-23 12:33] MED LIST: AMLO1TAB22 PO; APIX5TAB PO; ATOR20TA50 PO; DASA20TA PO; EMPA1TAB3 PO; LISI20TA56 PO; MET25T PO; SPIR25TA8 PO
--- NOTE | 2024-11-23 12:47 | ED.PDOC ---
GI ASSESSMENT HPI Comments 54--year-old male presents with a chief complaint of abdominal pain x 2 weeks. Patient states that his pain is localized to his epigastric region, nonradiating, describes as aching, and rates his pain a 8/10. Patient mentions that he had a CT scan of his abdomen x 2 weeks ago and was told that he has sludge in his gallbladder. Patient also mentions that he is has flu-like symptoms such as cough, congestion, runny nose, and feels cold. Patient denies any injuries or trauma prior to onset of symptoms. Time Seen by MD: 12:42 Primary Care Provider: NONE Reviewed Notes: Medications, Allergies Allergies: Coded Allergies: NO KNOWN ALLERGIES (Unverified , 11/11/22) Home Meds Reported Medications Atorvastatin Calcium (ATORVASTATIN CALCIUM) 20 Mg Tab, 1 TAB PO HS 11/06/24 Lisinopril (Lisinopril) 20 Mg Tab, 1 TAB PO BID 11/06/24 Empagliflozin (Jardiance) 25 Mg Tab, 10 MG PO DAILY 11/06/24 Spironolactone (Spironolactone) 25 Mg Tab, 1 TAB PO DAILY 11/06/24 Amlodipine Besylate (Amlodipine Besylate) 5 Mg Tab, 1 TAB PO DAILY 11/06/24 Apixaban Base (ELIQUIS) 5 Mg Tab, 1 TAB PO BID 11/06/24 Dasatinib (Sprycel) 20 Mg Tab, 100 MG PO DAILY, TAB 11/06/24 Metoprolol Tartrate (Lopressor) 25 Mg Tb, PO BID TAKE 1 TABLET BY MOUTH EVERY MOPRNING AND 1/2 TABLET NIGHTLY. 11/06/24 Information Source: Patient Mode of Arrival: Ambulatory Timing: Weeks Duration: Intermittent Prehospital treatment: None Quality: Aching Vomitus: None Stool: Normal Severity: Moderate Recent: None Recent Hx of: None Pain Location: Epigastric Associated sign and symptoms: Abdominal Pain Past Medical History PAST MEDICAL HISTORY: AFIB, Cancer, High Lipids, HTN Surgical History: Appendectomy Family History Family History: Family hx of DM Social History Smoker: Non-Smoker Alcohol: Denies ETOH Use Drugs: Denies Drug Use Lives In: Home Constitutional: denies: chills, diaphoresis, fatigue, fever, malaise, sweats, weakness, others EENTM: reports: nasal discharge, nose congestion; denies: blurred vision, double vision, ear bleeding, ear discharge, ear drainage, ear pain, ear ringing, eye pain, eye redness, hearing loss, mouth pain, mouth swelling, nose bleeding, nose pain, photophobia, tearing, throat pain, throat swelling, voice changes, others Respiratory: denies: cough, hemoptysis, orthopnea, SOB at rest, shortness of breath, SOB with excertion, stridor, wheezing, others Cardiovascular: denies: chest pain, dizzy spells, diaphoresis, Dyspnea on exertion, edema, irregular heart beat, left arm pain, lightheadedness, palpitations, PND, syncope, others Gastrointestinal: reports: abdominal pain; denies: abdomen distended, blood s treaked bowels, constipated, diarrhea, dysphagia, difficulty swallowing, hematemesis, melena, nausea, poor appetite, poor fluid intake, rectal bleeding, rectal pain, vomiting, others Genitourinary: denies: burning, dysuria, flank pain, frequency, hematuria, incontinence, penile discharge, penile sore, pain, testicle pain, testicle swelling, urgency, others Neurological: denies: dizziness, fainting, headache, left sided numbness, left sided weakness, numbness, paresthesia, pre-existing deficit, right sided numbness, right sided weakness, seizure, speech problems, tingling, tremors, weakness, others Musculoskeletal: denies: back pain, gout, joint pain, joint swelling, muscle pain, muscle stiffness, neck pain, others Integumetry: denies: bruises, change in color, change in hair/nails, dryness, laceration, lesions, lumps, rash, wounds, others Allergic/Immunocompromised: denies: Difficulty Healing, Frequent Infections, Hives, Itching, others Hematologic/Lymphatic: denies: anemia, blood clots, easy bleeding, easy bruising, swollen glands, others Endocrine: denies: excessive hunger, excessive sweating, excessive thirst, excessive urination, flushing, intolerance to cold, intolerance to heat, unexplained weight gain, unexplained weight loss, others Psychiatric: denies: anxiety, bipolar disorder, depression, hopeless, panic disorder, schizophrenia, sleepless, suicidal, others All Other Systems: Reviewed and Negative Physical Exam General Appearance: Moderate Distress, Obese HEENT: Normal ENT Inspection, Pharynx Normal, TMs Normal Neck: Full Range of Motion, Non-Tender, Normal, Normal Inspection Respiratory: Chest Non-Tender, Lungs Clear, No Accessory Muscle Use, No Respiratory Distress, Normal Breath Sounds Cardiovascular: No Edema, No JVD, No Murmur, No Gallop, Normal Peripheral Pulses, Regular Rate/Rhythm Breast Exam: Deferred Gastrointestinal: Epigastric, No Organomegaly, No Pulsatile Mass, Normal Bowel Sounds, Soft, Tenderness Genitalia: Deferred Pelvic: Deferred Rectal: Deferred Extremities: No calf tenderness, Normal capillary refill, Normal inspection, Normal range of motion, Non-tender, No pedal edema Musculoskeletal : Apperance: Normal Neurologic: Alert, flame burner II-XII nml as Tested, No Motor Deficits, Normal Affect, Normal Mood, No Sensory Deficits Cerebellar Function: Normal Reflexes: Normal Skin: Dry, Normal Color, Warm Lymphatic: No Adenopathy Was a procedure done? Was a procedure done?: No GI differential Dx Differential Diagnosis: Bowel Obstruction, Cholecystitis, Constipation, Diverticular disease, Gastritis/PUD, Hernia, Inflammatory BD, Pancreatitis X-Ray, Labs, Meds, VS Vital Signs Date Time Temp Pulse Resp B/P (MAP) Pulse Ox O2 Delivery O2 Flow Rate FiO2 11/23/24 15:16 64 16 141/68 (92) 97 11/23/24 15:08 93 16 141/68 11/23/24 14:36 61 20 147/70 11/23/24 14:31 67 20 147/70 (95) 99 11/23/24 14:17 60 19 133/67 11/23/24 13:44 66 20 98 Room Air* 0 21 11/23/24 13:40 66 20 161/85 11/23/24 12:43 98.2 70 19 126/59 (81) 97 Lab Test 11/23/24 13:33 Range/Units White Blood Count 8.3 4.4-10.8 10^3/uL Red Blood Count 3.90 L 4.5-5.90 10^6/uL Hemoglobin 11.5 L 13.5-17.5 g/dL Hematocrit 34.0 L 41.0-53.0 % Mean Corpuscular Volume 87.1 80.0-100.0 fL Mean Corpuscular Hemoglobin 29.4 28.0-32.0 pg Mean Corpuscular Hemoglobin Concent 33.7 32.0-36.0 g/dL Red Cell Distribution Width 15.3 H 11.8-14.3 % Platelet Count 181 140-450 10^3/uL Mean Platelet Volume 7.4 6.9-10.8 fL Neutrophils (%) (Auto) 51.3 37.0-80.0 % Lymphocytes (%) (Auto) 34.5 10.0-50.0 % Monocytes (%) (Auto) 11.0 0.0-12.0 % Eosinophils (%) (Auto) 2.6 0.0-7.0 % Basophils (%) (Auto) 0.6 0.0-2.0 % Neutrophils # (Auto) 4.3 1.6-8.6 10 ^3/uL Lymphocytes # (Auto) 2.9 0.4-5.4 10 ^3/uL Monocytes # (Auto) 0.9 0-1.3 10 ^3/uL Eosinophils # (Auto) 0.2 0-0.8 10 ^3/uL Basophils # (Auto) 0 0-0.2 10 ^3/uL Nucleated Red Blood Cells 0.1 % Sodium Level 138 136-145 mmol/L Potassium Level 3.8 3.5-5.1 mmol/L Chloride Level 108 H 98-107 mmol/L Carbon Dioxide Level 20 20-31 mmol/L Anion Gap 10 5-15 Blood Urea Nitrogen 11 9-23 mg/dL Creatinine 0.86 0.700-1.30 mg/dL Glomerular Filtration Rate Calc 102 >90 mL/min BUN/Creatinine Ratio 12.8 10.0-20.0 Serum Glucose 105 74-106 mg/dL Calcium Level 9.5 8.7-10.4 mg/dL Total Bilirubin 0.5 0.2-1.0 mg/dL Aspartate Amino Transferase (AST) 20 13-40 U/L Alanine Aminotransferase (ALT) 28 7-40 U/L Alkaline Phosphatase 85 46-116 U/L Troponin I High Sensitivity Pending Total Protein 8.1 5.7-8.2 g/dL Albumin 5.0 H 3.2-4.8 g/dL Lipase 46 12-53 U/L Current Medications Medications (Trade) Dose Ordered Sig/Caroline Route Start Time Stop Time Status Last Admin Ondansetron HCl (Zofran) 4 mg ONCE ONCE IV 11/23/24 13:00 11/23/24 13:01 DC 11/23/24 13:38 Morphine Sulfate 4 mg ONCE ONCE IV 11/23/24 13:00 11/23/24 13:01 DC 11/23/24 13:40 Al Hydrox/Mg Hydrox/Simethicone (Maalox Plus) 30 ml ONCE ONCE PO 11/23/24 13:00 11/23/24 13:01 DC 11/23/24 13:39 Belladonna Alkaloids/ Phenobarbital ( Elixir) 5 ml ONCE ONCE PO 11/23/24 13:00 11/23/24 13:01 DC 11/23/24 13:39 Lidocaine HCl (Xylocaine 2% Viscous) 15 ml ONCE ONCE PO 11/23/24 13:00 11/23/24 13:01 DC 11/23/24 13:39 Hydromorphone HCl (Dilaudid Injection) 1 mg ONCE ONCE IV 11/23/24 14:30 11/23/24 14:31 DC 11/23/24 14:36 PATIENT: GABRIEL QUINONESACCT: [id number]: [id number] : 1970 LOC: ER ROOM / BED: / AGE / SEX: 54 / M ADM STATUS: REG ER SERVICE 1252 ORDERING PHYSICIAN: OLIVIER VALERA MD PROCEDURE(s): GBUS - GALLBLADDER REASON: ro gege ORDER NUMBER(s): [id number], ACCESSION NUMBER(s): [id number] EXAM: US GALLBLADDER CLINICAL HISTORY: ro gege TECHNIQUE: Grayscale and limited color flow doppler ultrasound of the right upper quadrant is performed. COMPARISON: US GALLBLADDER on DOS: 11/06/24 Findings: Liver measures 15.8 cm in length with normal echotexture and contour. No evidence of focal hepatic lesions or intra- or extrahepatic ductal dilatation. Common bile duct measures 0.7 cm in diameter. Normal hepatopedal flow noted within the portal vein. No perihepatic free fluid is noted. Gallbladder appears within normal limits with gallbladder wall thickness measuring 0.2 cm. No evidence of shadowing calculi, biliary sludge or pericholecystic fluid. Negative sonographic Estrella's sign. Pancreas not well-visualized due to overlying bowel gas. Right kidney measures 9.4 cm with normal contours, echotexture and cortical thickness. No evidence of hydronephrosis, calculi, cystic or solid renal lesions. Partially visualized inferior vena cava unremarkable. Impression: 1. No evidence of acute right upper quadrant abnormalities. ATED BY: MORENA ORTIZ DO DICTATED DATE/TIME: 11/23/241328 SIGNED BY: MORENA ORTIZ DO SIGNED DATE/TIME: 11/23/241328 PATIENT: GABRIEL QUINONES ACCT: [id number] UNIT: [id number] : 1970 LOC: ER ROOM / BED: / AGE / SEX: 54 / M ADM STATUS: REG ER SERVICE 24 ORDERING PHYSICIAN: OLIVIER VALERA MD PROCEDURE(s): ABPL - CT AB PEL WO CON-NO ORAL OR IV REASON: abd pain ORDER NUMBER(s): [id number], ACCESSION NUMBER(s): [id number] Exam: CT CT AB PEL WO CON-NO ORAL OR IV History: abd pain Comparison Study: Gallbladder ultrasound 11/23/2024 Technique: Multidetector spiral CT of the abdomen was performed from lung bases to pubic symphysis. Imaging was performed without IV contrast. Axial, coronal and sagittal multiplanar reformats were obtained from the axial data set by the technologist. Radiation Dose : 1. Abdomen/Pelvis: CTDIvol 28 mGy, DLP 1589 mGy*cm. Findings: Evaluation of solid organs is limited due to lack of intravenous contrast use. Lung Bases: No acute or significant lung base finding. Normal heart size. No pleural or pericardial effusion. Liver: The liver is normal in size. No focal lesions. Gallbladder and Biliary Tree: Unremarkable Spleen: Unremarkable Pancreas: The pancreas is grossly normal in appearance. Adrenal Glands: Unremarkable Kidneys: No evidence of hydronephrosis or renal calculi. There is a 2.2 x 1.4 cm density at the left inferior renal pole that attenuates at 52 Hounsfield units. Bladder: Grossly unremarkable for degree of distention. Bowel: The stomach is grossly normal in appearance. Small bowel and colon are normal in caliber and distribution. Minimal colonic diverticulosis. There is minimal free fluid adjacent to a diverticula in the sigmoid colon ( series 2, image 81). No significant associated fat stranding and no evidence of organized collections to suggest abscess. Mild wall thickening in the descending colon is likely due to poor distention. The appendix is not visualized; however, no secondary findings of acute appendicitis identified. Ascites: There is trace fluid in the pelvis. Lymphadenopathy: No mesenteric, retroperitoneal or periportal lymphadenopathy. Abdominal Wall and Mesentery: Small fat containing umbilical hernia. Vasculature: The visualized abdominal aorta is normal in size and caliber. Evaluation of abdominal and pelvic vessels is limited due to lack of intravenous contrast. Pelvic Organs: Unremarkable Musculoskeletal: No aggressive focal bony lesions, acute fractures or dislocat ion. In the ventral spinal canal at the level of T9 there is a 1.2 x 0.6 cm hypodense focus, best seen on the sagittal view (series 602, image 85) and with a possible correlate on the axial view (series 2, image 16). IMPRESSION: 1. Minimal colonic diverticulosis. There is very trace free fluid adjacent to a sigmoid colon diverticula and acute diverticulitis is not completely excluded; however, there is no significant fat stranding. No evidence of abscess or free air. 2. Indeterminate left renal density measuring up to 2.2 cm. Recommend renal ultrasound. If this finding is not seen or adequately characterized on ultrasound then a renal protocol CT or MRI would be an appropriate next step. 3. Questionable lesion in the ventral spinal canal at the level of T9. Recommend nonemergent thoracic spine MRI with intravenous contrast. Radiation optimization: All CT scans at this facility use at least one of these dose optimization techniques: automated exposure control mA and/or kV adjustment per patient size (includes targeted exams where dose is matched to clinical indication) or iterative reconstruction. ATED BY: TED MOYER DO DICTATED DATE/TIME: 11/23/24 1524 SIGNED BY: TED MOYER DO SIGNED DATE/TIME: 11/23/24 1524 54-year-old male presents here with abdominal pain. He points to the epigastric region and he is tender on my examination. I considered possible gallbladder disease. He had does have a history of gallbladder sludge. 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 At this time ultrasound has been done with no evidence of abnormality to the gallbladder. I also considered possible gastritis. GI cocktail was given however after the GI cocktail and morphine IV he states his pain was even worse now. I considered other etiologies including small-bowel obstruction, pancreatitis. CT scan of the abdomen pelvis was done. At this time it demonstrates some trace free fluid adjacent to the sigmoid colon consistent with probably acute diverticulitis. Also demonstrates an indeterminate left renal density measuring up to 2.2 cm and recommends a renal ultrasound. Also demonstrates questionable lesion the ventral spinal canal level of T9 recommend MRI with IV contrast. At this time patient is still having significant pain despite multiple doses of narcotics and abnormalities on CT abdomen pelvis, hospitalist team has been contacted for admission. Time of 1ST Reevaluation: 13:30 Reevaluation 1ST: Unchanged Patient Education/Counseling: Diagnosis, Treatment, Prognosis Family Education/Counseling: Diagnosis, Treatment, Prognosis Departure 1 Departure Time of Disposition: 15:59 Impression: Primary Impression: Abdominal pain Qualified Codes: R10.13 - Epigastric pain Additional Impressions: Acute diverticulitis Renal mass, left Lesion of bone of thoracic spine Disposition: ADMITTED INPATIENT Condition: Fair Critical Care Note Critical Care Time?: No Stability Stability form required: No I personally scribed for OLIVIER VALERA MD ([email or web address]) on 11/23/24 at 13:57. Electronically submitted by Andrey Agrawal ([email or web address]). I personally scribed for OLIVIER VALERA MD ([email or web address]) on 11/23/24 at 14:52. Electronically submitted by Andrey Agrawal ([email or web address]). I personally scribed for OLIVIER VALERA MD ([email or web address]) on 11/23/24 at 16:02. Electronically submitted by Andrey Agrawal ([email or web address]). I personally scribed for OLIVIER VALERA MD ([email or web address]) on 11/23/24 at 16:03. Electronically submitted by Andrey Agrawal ([email or web address]). OLIVIER VALERA MD Nov 23, 2024 12:47
--- NOTE | 2024-11-23 13:32 | DVH ---
EXAM: US GALLBLADDER CLINICAL HISTORY: ro gege TECHNIQUE: Grayscale and limited color flow doppler ultrasound of the right upper quadrant is perfor med. COMPARISON: US GALLBLADDER on DOS: 11/06/24 Findings: Liver measures 15.8 cm in length with normal echotexture and contour. No evidence of focal hepatic le sions or intra- or extrahepatic ductal dilatation. Common bile duct measures 0.7 cm in diameter. Norm al hepatopedal flow noted within the portal vein. No perihepatic free fluid is noted. Gallbladder appears within normal limits with gallbladder wall thickness measuring 0.2 cm. No evidenc e of shadowing calculi, biliary sludge or pericholecystic fluid. Negative sonographic Estrella's sign. Pancreas not well-visualized due to overlying bowel gas. Right kidney measures 9.4 cm with normal contours, echotexture and cortical thickness. No evidence of hydronephrosis, calculi, cystic or solid renal lesions. Partially visualized inferior vena cava unremarkable. Impression: 1. No evidence of acute right upper quadrant abnormalities.
[2024-11-23] MEDS: ONDANSETRON HCL 4 MG/2 ML VIAL IV ONE (13:38)
[2024-11-23] MEDS: DONNATAL 5ml ORAL Elix (BELLADONNA ALK-PHENOBARB) PO ONE (13:39)
[2024-11-23] MEDS: LIDOCAINE VISCOUS 2% 15ML UD PO ONE (13:39)
[2024-11-23] MEDS: MAALOX PLUS or MAALOX 30 ML PO ONE (13:39)
[2024-11-23] MEDS: MORPHINE SULFATE 4 MG/ML SYR/VIAL IV ONE (13:40)
[2024-11-23 13:44] VITALS: PULSE 66; RESP 20; O2SAT 98
[2024-11-23 13:52] LABS: Basophils # (auto) 0 10 ^3/uL (0-0.2); Basophils % (auto) 0.6 % (0.0-2.0); Eosinophils # (auto) 0.2 10 ^3/uL (0-0.8); Eosinophils % (auto) 2.6 % (0.0-7.0); Hemoglobin 11.5 g/dL (13.5-17.5); Lymphocytes # (auto) 2.9 10 ^3/uL (0.4-5.4); Lymphocytes % (auto) 34.5 % (10.0-50.0); Mean Corpuscular Hemoglobin 29.4 pg (28.0-32.0); Mean Corpuscular Hgb Conc. 33.7 g/dL (32.0-36.0); Mean Corpuscular Volume 87.1 fL (80.0-100.0); Monocytes # (auto) 0.9 10 ^3/uL (0-1.3); Neutrophils # (auto) 4.3 10 ^3/uL (1.6-8.6); Neutrophils % (auto) 51.3 % (37.0-80.0); Nucleated Red Blood Cells % 0.1 %; Platelet Count (auto) 181 10^3/uL (140-450); Red Cell Distribution Width 15.3 % (11.8-14.3); White Blood Cell 8.3 10^3/uL (4.4-10.8)
[2024-11-23 14:04] LABS: Alanine Aminotransferase 28 U/L (7-40); Alkaline Phosphatase 85 U/L (46-116); Anion Gap 10 (5-15); Aspartate Aminotransferase 20 U/L (13-40); BUN/Creatinine Ratio 12.8 (10.0-20.0); Blood Urea Nitrogen 11 mg/dL (9-23); Calcium 9.5 mg/dL (8.7-10.4); Glucose 105 mg/dL (74-106); Lipase 46 U/L (12-53); Potassium 3.8 mmol/L (3.5-5.1); Sodium 138 mmol/L (136-145); Total Protein 8.1 g/dL (5.7-8.2)
[2024-11-23 14:05] LABS: Bilirubin, Total 0.5 mg/dL (0.2-1.0)
[2024-11-23 14:20] LABS: Carbon Dioxide 20 mmol/L (20-31); Chloride 108 mmol/L (98-107)
[2024-11-23] MEDS: HYDROmorphone HCL 2 MG/ML VL/or syr IV ONE (14:36)
--- NOTE | 2024-11-23 15:26 | DVH ---
Exam: CT CT AB PEL WO CON-NO ORAL OR IV History: abd pain Comparison Study: Gallbladder ultrasound 11/23/2024 Technique: Multidetector spiral CT of the abdomen was performed from lung bases to pubic symphysis. Imaging was performed without IV contrast. Axial, coronal and sagittal multiplanar reformats were ob tained from the axial data set by the technologist. Radiation Dose : 1. Abdomen/Pelvis: CTDIvol 28 mGy, DLP 1589 mGy*cm. Findings: Evaluation of solid organs is limited due to lack of intravenous contrast use. Lung Bases: No acute or significant lung base finding. Normal heart size. No pleural or pericardial effusion. Liver: The liver is normal in size. No focal lesions. Gallbladder and Biliary Tree: Unremarkable Spleen: Unremarkable Pancreas: The pancreas is grossly normal in appearance. Adrenal Glands: Unremarkable Kidneys: No evidence of hydronephrosis or renal calculi. There is a 2.2 x 1.4 cm density at the left inferior renal pole that attenuates at 52 Hounsfield units. Bladder: Grossly unremarkable for degree of distention. Bowel: The stomach is grossly normal in appearance. Small bowel and colon are normal in caliber and d istribution. Minimal colonic diverticulosis. There is minimal free fluid adjacent to a diverticula i n the sigmoid colon ( series 2, image 81). No significant associated fat stranding and no evidence of organized collections to suggest abscess. Mild wall thickening in the descending colon is likely due to poor distention. The appendix is not visualized; however, no secondary findings of acute appendic itis identified. Ascites: There is trace fluid in the pelvis. Lymphadenopathy: No mesenteric, retroperitoneal or periportal lymphadenopathy. Abdominal Wall and Mesentery: Small fat containing umbilical hernia. Vasculature: The visualized abdominal aorta is normal in size and caliber. Evaluation of abdominal a nd pelvic vessels is limited due to lack of intravenous contrast. Pelvic Organs: Unremarkable Musculoskeletal: No aggressive focal bony lesions, acute fractures or dislocation. In the ventral spi nal canal at the level of T9 there is a 1.2 x 0.6 cm hypodense focus, best seen on the sagittal view (series 602, image 85) and with a possible correlate on the axial view (series 2, image 16). IMPRESSION: 1. Minimal colonic diverticulosis. There is very trace free fluid adjacent to a sigmoid colon diverti cula and acute diverticulitis is not completely excluded; however, there is no significant fat strand ing. No evidence of abscess or free air. 2. Indeterminate left renal density measuring up to 2.2 cm. Recommend renal ultrasound. If this fin ding is not seen or adequately characterized on ultrasound then a renal protocol CT or MRI would be a n appropriate next step. 3. Questionable lesion in the ventral spinal canal at the level of T9. Recommend nonemergent thoracic spine MRI with intravenous contrast. Radiation optimization: All CT scans at this facility use at least one of these dose optimization aditya hniques: automated exposure control mA and/or kV adjustment per patient size (includes targeted exam s where dose is matched to clinical indication) or iterative reconstruction.
[2024-11-23] MEDS ORDERED: HYDROcodone-ACET 5/325MG TAB PO PRN (17:00)
[2024-11-23] MEDS ORDERED: ACETAMINOPHEN 500 MG TAB or CAP PO PRN (17:00)
--- NOTE | 2024-11-23 17:02 | DVHHP2 ---
History of Present Illness Reason for Visit: Abdominal pain History of Present Illness The patient was a 54-year-old male presenting to the emergency room with complaints of abdominal pain. Patient reports having nausea and vomiting two days ago, which has resolved as now able to tolerate oral intake. He continues to have epigastric pain with some radiation to his back, rated a 5/10. He reports the pain is similar to his previous admission to this hospital which was two weeks ago. Patient was a significant history of questionable gallbladder disease, CML, atrial fibrillation, diabetes mellitus, and hypertension. Cardiovascular: AFIB, HTN, hyperipidemia Heme/Onc: Cancer (CML) Past Surgical History: Appendectomy Family History: None Smoke: # pack years ALCOHOL: none Drugs: None Lives: with Family Domestic Violence: Neg Review of Systems Constitutional: No: Fever, Chills, Sweats, Weakness, Malaise, Other ENT: No: Ear pain, Ear discharge, Nose pain, Nose discharge, Nose congestion, Mouth pain, Mouth swelling, Throat pain, Throat swelling, Other Respiratory: No: Cough, Dry, Shortness of breath, SOB with excertion, Wheezing, Hemoptysis, Pleuritic Pain, Sputum, Wheezing, Other Gastrointestinal: Nausea, Vomiting, Abdominal Pain Genitourinary: No Dysuria, No Frequency, No Incontinence, No Hematuria, No Retention, No Other Musculoskeletal: No: other, neck pain, shoulder pain, arm pain, back pain, hand pain, leg pain, foot pain Skin: No: Rash, Lesions, Jaundice, Bruising, Other Neurological: No: Weakness, Numbness, Incoordination, Change in speech, Confusion, Seizures, Other Allergies: Coded Allergies: NO KNOWN ALLERGIES (Unverified , 11/11/22) Medications Current Medications Medications Dose Ordered Sig/Caroline Route Start Time Stop Time Status Last Admin Dose Admin Pantoprazole Sodium 40 mg BID@0600,1700 PO 11/23/24 17:00 UNV Amlodipine Besylate 5 mg DAILY PO 11/24/24 10:00 UNV Atorvastatin Calcium 20 mg HS PO 11/23/24 22:00 UNV Lisinopril 20 mg BID PO 11/23/24 22:00 UNV Metoprolol Tartrate 25 mg BID PO 11/23/24 22:00 UNV Spironolactone 25 mg DAILY PO 11/24/24 10:00 UNV Patient Own Medication 10 mg DAILY PO 11/24/24 10:00 UNV Exam Vital Signs Vital Signs Date Time Temp Pulse Resp B/P (MAP) Pulse Ox O2 Delivery O2 Flow Rate FiO2 11/23/24 15:16 64 16 141/68 (92) 97 11/23/24 13:44 Room Air* 0 21 11/23/24 12:43 98.2 General Appearance: Alert, Oriented X3, Cooperative, mild distress HEENT: Atraumatic Respiratory: Clear to auscultation, Normal air movement Cardiovascular: Normal S1, Normal S2 Abdominal: Normal bowel sounds Extremities: No clubbing, No cyanosis Skin: No rashes, No breakdown Neuro: Normal gait, Normal speech, Cranial nerves 3-12 NL Psych/Mental Status: Mental status NL, Mood NL Labs/Xrays Labs Test 11/23/24 13:33 Range/Units White Blood Count 8.3 4.4-10.8 10^3/uL Red Blood Count 3.90 L 4.5-5.90 10^6/uL Hemoglobin 11.5 L 13.5-17.5 g/dL Hematocrit 34.0 L 41.0-53.0 % Mean Corpuscular Volume 87.1 80.0-100.0 fL Mean Corpuscular Hemoglobin 29.4 28.0-32.0 pg Mean Corpuscular Hemoglobin Concent 33.7 32.0-36.0 g/dL Red Cell Distribution Width 15.3 H 11.8-14.3 % Platelet Count 181 140-450 10^3/uL Mean Platelet Volume 7.4 6.9-10.8 fL Neutrophils (%) (Auto) 51.3 37.0-80.0 % Lymphocytes (%) (Auto) 34.5 10.0-50.0 % Monocytes (%) (Auto) 11.0 0.0-12.0 % Eosinophils (%) (Auto) 2.6 0.0-7.0 % Basophils (%) (Auto) 0.6 0.0-2.0 % Neutrophils # (Auto) 4.3 1.6-8.6 10 ^3/uL Lymphocytes # (Auto) 2.9 0.4-5.4 10 ^3/uL Monocytes # (Auto) 0.9 0-1.3 10 ^3/uL Eosinophils # (Auto) 0.2 0-0.8 10 ^3/uL Basophils # (Auto) 0 0-0.2 10 ^3/uL Nucleated Red Blood Cells 0.1 % Sodium Level 138 136-145 mmol/L Potassium Level 3.8 3.5-5.1 mmol/L Chloride Level 108 H 98-107 mmol/L Carbon Dioxide Level 20 20-31 mmol/L Anion Gap 10 5-15 Blood Urea Nitrogen 11 9-23 mg/dL Creatinine 0.86 0.700-1.30 mg/dL Glomerular Filtration Rate Calc 102 >90 mL/min BUN/Creatinine Ratio 12.8 10.0-20.0 Serum Glucose 105 74-106 mg/dL Calcium Level 9.5 8.7-10.4 mg/dL Total Bilirubin 0.5 0.2-1.0 mg/dL Aspartate Amino Transferase (AST) 20 13-40 U/L Alanine Aminotransferase (ALT) 28 7-40 U/L Alkaline Phosphatase 85 46-116 U/L Total Protein 8.1 5.7-8.2 g/dL Albumin 5.0 H 3.2-4.8 g/dL Lipase 46 12-53 U/L Assessment/Plan Assessment/Plan Impression: -abdominal pain, rule out peptic ulcer disease, gastritis -primary hypertension -atrial fibrillation -obesity -dyslipidemia -diabetes mellitus Plan: -admit to Medical/Surgical unit -GI consultation -start Protonix 40 mg p.o. b.i.d., Carafate 1 g p.o. b.i.d. -hold Eliquis given patient may require EGD -restart metoprolol tartrate -regular insulin sliding scale -clear liquid diet -antibiotic therapy: Flagyl 500 mg t.i.d. given questionable diverticulitis. Total time spent with patient discussing and formulating plan of care: 35 minutes. This medical document was created using an electronic medical record system with [employer] dictation system. Although this document has been carefully reviewed, there may still be some phonetic and typographical errors. These areas are purely typographical due to imperfections of the software programs, and do not reflect any compromise in the patient's medical care. 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 11/23/24 Transmitted 16:52 Clear Liq Diet DIET 11/23/24 Transmitted Dinner Pantoprazole Tablet PHA 11/23/24 Logged (Protonix Tablet) 17:00 Sucralfate Tab PHA 11/23/24 Logged (Carafate Tab) 22:00 Amlodipine Tablet PHA 11/24/24 Logged (Norvasc Tablet) 10:00 Atorvastatin (Lipitor) PHA 11/23/24 Logged 22:00 Lisinopril Tablet PHA 11/23/24 Logged (Zestril Tablet) 22:00 Metoprolol Tartrate PHA 11/23/24 Logged Tablet (Lopressor Ta 22:00 Spironolactone PHA 11/24/24 Logged (Aldactone) 10:00 (Nf) Empagliflozin PHA 11/24/24 Logged (Jardiance) 10:00 Morphine Sulfate PHA 11/23/24 Verified Injection 17:00 Hydrocodone-Acet PHA 11/23/24 Verified 5/325mg Tab ([place] 17:00 Acetaminophen Tablet PHA 11/23/24 Verified (Tylenol Tablet) 17:00 Ondansetron Hcl PHA 11/23/24 Verified (Zofran) 17:00 Metronidazole Tablet 11/23/24 Verified (Flagyl Tablet) 22:00 Date of Service: Nov 23, 2024 Billing Provider: RASHIDA ADAMS NP Common Visit Codes: [id number] INP/OBS CARE (HIGH) RASHIDA ADAMS NP Nov 23, 2024 17:02
[2024-11-23 17:30] VITALS: BP 142/72; PULSE 75; RESP 16; TEMP 98.6; O2SAT 95
[2024-11-23 17:44] VITALS: BP 142/72; PULSE 75; RESP 16; TEMP 98.6; O2SAT 95
[2024-11-23] MEDS: MORPHINE SULFATE INJ 2 MG/ml SYRG IV PRN (18:10)
[2024-11-23] MEDS: PANTOPRAZOLE 40 MG TAB PO SCH (18:37)
[2024-11-23] MEDS: ONDANSETRON HCL 4 MG/2 ML VIAL IV PRN (19:02)
[2024-11-23] MEDS: HYDROcodone-ACET 7.5/325MG TAB PO PRN (19:46)
[2024-11-23 20:00] VITALS: BP 160/84; PULSE 75; RESP 18; TEMP 97.4; O2SAT 90
[2024-11-23] MEDS: metroNIDAZOLE 500 MG TAB PO SCH (22:40)
[2024-11-23] MEDS: METOPROLOL TARTRATE 25 MG TAB PO SCH (22:41)
[2024-11-23] MEDS: LISINOPRIL 20 MG TAB PO SCH (22:41)
[2024-11-23] MEDS: ATORVASTATIN 20 MG TAB PO SCH (22:41)
[2024-11-23 22:45] VITALS: BP 123/71; PULSE 94; RESP 18; TEMP 98; O2SAT 97
[2024-11-23] MEDS: SUCRALFATE 1 GM TAB PO ONE (23:19)
[2024-11-24 01:00] VITALS: BP 122/72; PULSE 86; RESP 17; TEMP 98; O2SAT 98
[2024-11-24 04:35] VITALS: BP 123/59; PULSE 77; RESP 18; TEMP 98.2; O2SAT 97
[2024-11-24] MEDS: amLODIPine BESYLATE 5 MG TAB PO SCH (09:09)
[2024-11-24] MEDS: SPIRONOLACTONE 25 MG TAB PO SCH (09:10)
[2024-11-24] MEDS: EMPAGLIFLOZIN 10 MG TAB PO SCH (09:10)
[2024-11-24 09:18] VITALS: BP 110/65; PULSE 78; RESP 18; TEMP 98.3; O2SAT 97
--- NOTE | 2024-11-24 12:24 | DVHPN2 ---
Subjective Patient was states that his abdominal pain has improved. Reviewed: Care Plan, H&P, Labs, Medications Changes from previous H/P or p: No Changes ENT: No Ear pain, No Ear discharge, No Nose pain, No Nose discharge, No Nose congestion, No Mouth pain, No Mouth swelling, No Throat pain, No Throat swelling, No Other Respiratory: No Cough, No Dry, No Shortness of breath, No SOB with excertion, No Wheezing, No Hemoptysis, No Pleuritic Pain, No Sputum, No Other Gastrointestinal: Nausea, Vomiting, Abdominal Pain Genitourinary: No Dysuria, No Frequency, No Incontinence, No Hematuria, No Retention, No Other Musculoskeletal: No other, No neck pain, No shoulder pain, No arm pain, No back pain, No hand pain, No leg pain, No foot pain Skin: No Rash, No Lesions, No Jaundice, No Bruising, No Other Objective Vitals Vital Signs Date Time Temp Pulse Resp B/P (MAP) Pulse Ox O2 Delivery O2 Flow Rate FiO2 11/24/24 09:18 98.3 78 18 110/65 (80) 97 98.3 11/23/24 17:30 Room Air* 0 21 General Appearance: Alert, Oriented X3, Cooperative, No acute distress HEENT: Atraumatic, PERRLA Lungs: Clear to auscultation, Normal air movement Cardiovascular: Normal S1, Normal S2 Abdomen: Normal bowel sounds, Soft, No tenderness Musculoskeletal: Normal sensory function, Normal motor function Extremities: No clubbing, No cyanosis Psych/Mental Status: Mental status NL, Mood NL Medications Current Medications Medications Dose Ordered Sig/Caroline Route Start Time Stop Time Status Last Admin Dose Admin Pantoprazole Sodium 40 mg BID@0600,1700 PO 11/23/24 17:00 11/24/24 06:03 40 MG Amlodipine Besylate 5 mg DAILY PO 11/24/24 10:00 Atorvastatin Calcium 20 mg HS PO 11/23/24 22:00 11/23/24 22:41 20 MG Lisinopril 20 mg BID PO 11/23/24 22:00 11/23/24 22:41 20 MG Metoprolol Tartrate 25 mg BID PO 11/23/24 22:00 11/23/24 22:41 25 MG Spironolactone 25 mg DAILY PO 11/24/24 10:00 11/24/24 09:10 25 MG Empaglifozin 10 mg DAILY PO 11/24/24 10:00 11/24/24 09:10 10 MG Morphine Sulfate 1 mg Q4HPRN PRN IV 11/23/24 17:00 11/23/24 18:10 1 MG Acetaminophen 500 mg Q8HP PRN PO 11/23/24 17:00 Ondansetron HCl 4 mg Q6HP PRN IV 11/23/24 17:00 11/23/24 19:02 4 MG Metronidazole 500 mg Q8HR PO 11/23/24 22:00 11/24/24 06:03 500 MG Acetaminophen/ Hydrocodone Bitart 1 tab Q6HP PRN PO 11/23/24 18:45 11/23/24 19:46 1 TAB Laboratory Results Laboratory Tests 11/23/24 13:33 Chemistry Test 11/23/24 13:33 Albumin 5.0 g/dL (3.2-4.8) H Calcium Level 9.5 mg/dL (8.7-10.4) Total Protein 8.1 g/dL (5.7-8.2) Lipid panel Test 11/23/24 13:33 Lipase 46 U/L (12-53) LFT Test 11/23/24 13:33 Alanine Aminotransferase (ALT) 28 U/L (7-40) Alkaline Phosphatase 85 U/L (46-116) Aspartate Amino Transferase (AST) 20 U/L (13-40) Total Bilirubin 0.5 mg/dL (0.2-1.0) Labs and/or images reviewed: Labs reviewed by me, Image(s) reviewed by me Assessment/Plan Assessment/Plan Impression: -abdominal pain, rule out peptic ulcer disease, gastritis -primary hypertension -atrial fibrillation -obesity -dyslipidemia -diabetes mellitus -questionable T9 spine lesion Plan: Events: No events overnight. Patient states that his abdominal pain has improved. Continue clear liquid diet until GI has seen the patient. -GI consultation : Pending -start Protonix 40 mg p.o. b.i.d., Carafate 1 g p.o. b.i.d. -hold Eliquis given patient may require EGD -restart metoprolol tartrate -regular insulin sliding scale -clear liquid diet -antibiotic therapy: Flagyl 500 mg t.i.d. given questionable diverticulitis. Total time spent with patient discussing and formulating plan of care: 35 minutes. This medical document was created using an electronic medical record system with [employer] computerized dictation system. Although this document has been carefully reviewed, there may still be some phonetic and typographical errors. These areas are purely typographical due to imperfections of the software programs, and do not reflect any compromise in the patient's medical care. 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 11/23/24 Transmitted 16:52 Clear Liq Diet DIET 11/23/24 Transmitted Dinner Pantoprazole Tablet PHA 11/23/24 In Process (Protonix Tablet) 17:00 Amlodipine Tablet PHA 11/24/24 In Process (Norvasc Tablet) 10:00 Atorvastatin (Lipitor) PHA 11/23/24 In Process 22:00 Lisinopril Tablet PHA 11/23/24 In Process (Zestril Tablet) 22:00 Metoprolol Tartrate PHA 11/23/24 In Process Tablet (Lopressor Ta 22:00 Spironolactone PHA 11/24/24 In Process (Aldactone) 10:00 Empagliflozin PHA 11/24/24 In Process (Jardiance) 10:00 Morphine Sulfate PHA 11/23/24 In Process Injection 17:00 Acetaminophen Tab Or PHA 11/23/24 In Process Cap (Tylenol Tablet 17:00 Ondansetron Hcl PHA 11/23/24 In Process (Zofran) 17:00 Metronidazole Tablet PHA 11/23/24 In Process (Flagyl Tablet) 22:00 Mrsa Screen [place] 11/23/24 In Process 19:03 Date of Service: Nov 24, 2024 Billing Provider: RASHIDA ADAMS NP Common Visit Codes: [id number] INP/OBS CARE(HIGH) RASHIDA ADAMS NP Nov 24, 2024 12:24
--- NOTE | 2024-11-24 13:00 | DVHINCON2 ---
GI Consult Consult Note GI Consult note Date of Consultation: 11/24/2024 Chief Complaint: Epigastric pain Referring Physician: Negrita JOY H&P: 54-year-old male presented to ER with abdominal pain for two weeks. Patient has pain mostly in the epigastric area. Pain worse when eating food Patient has nausea and vomiting mostly food that he had eaten, denies hematemesis Last BM Sunday no melena or red blood in stool Patient has history of GERD, does not take any medications on a regular basis Patient admits to his pain having improved since being hospitalized and tolerating a clear liquid diet SP colonoscopy two months ago within normal limits, patient has history of colon polyps in the past No EGD in past Patient on Eliquis for the last six months, last dosed on Sunday Patient diagnosed with CML and goes to [facility] treatments Past Medical History: AFIB, Cancer, High Lipids, HTN Past Surgical History: Appendectomy Social History: NO smoking, drinking ETOH and use of illegal drugs. Family History: Noncontributory Review of Systems: Constitutional: no fever, chill, weight loss HEENT: no eye pain, no hearing loss, no oral lesion, no scleral icterus Heart: no chest pain, no chest pressure Lung: no cough, no dyspnea with exertion Abdomen: see HPI Physical exam: General: NAD, AAOX3 Chest: lung newell clear to auscultation Heart: RRR, no murmur Abdomen: no tenderness to palpation, +BS Labs: Labs Test 11/23/24 13:33 Range/Units White Blood Count 8.3 4.4-10.8 10^3/uL Red Blood Count 3.90 L 4.5-5.90 10^6/uL Hemoglobin 11.5 L 13.5-17.5 g/dL Hematocrit 34.0 L 41.0-53.0 % Mean Corpuscular Volume 87.1 80.0-100.0 fL Mean Corpuscular Hemoglobin 29.4 28.0-32.0 pg Mean Corpuscular Hemoglobin Concent 33.7 32.0-36.0 g/dL Red Cell Distribution Width 15.3 H 11.8-14.3 % Platelet Count 181 140-450 10^3/uL Mean Platelet Volume 7.4 6.9-10.8 fL Neutrophils (%) (Auto) 51.3 37.0-80.0 % Lymphocytes (%) (Auto) 34.5 10.0-50.0 % Monocytes (%) (Auto) 11.0 0.0-12.0 % Eosinophils (%) (Auto) 2.6 0.0-7.0 % Basophils (%) (Auto) 0.6 0.0-2.0 % Neutrophils # (Auto) 4.3 1.6-8.6 10 ^3/uL Lymphocytes # (Auto) 2.9 0.4-5.4 10 ^3/uL Monocytes # (Auto) 0.9 0-1.3 10 ^3/uL Eosinophils # (Auto) 0.2 0-0.8 10 ^3/uL Basophils # (Auto) 0 0-0.2 10 ^3/uL Nucleated Red Blood Cells 0.1 % Sodium Level 138 136-145 mmol/L Potassium Level 3.8 3.5-5.1 mmol/L Chloride Level 108 H 98-107 mmol/L Carbon Dioxide Level 20 20-31 mmol/L Anion Gap 10 5-15 Blood Urea Nitrogen 11 9-23 mg/dL Creatinine 0.86 0.700-1.30 mg/dL Glomerular Filtration Rate Calc 102 >90 mL/min BUN/Creatinine Ratio 12.8 10.0-20.0 Serum Glucose 105 74-106 mg/dL Calcium Level 9.5 8.7-10.4 mg/dL Total Bilirubin 0.5 0.2-1.0 mg/dL Aspartate Amino Transferase (AST) 20 13-40 U/L Alanine Aminotransferase (ALT) 28 7-40 U/L Alkaline Phosphatase 85 46-116 U/L Troponin I High Sensitivity 3 L </=54 ng/L Total Protein 8.1 5.7-8.2 g/dL Albumin 5.0 H 3.2-4.8 g/dL Lipase 46 12-53 U/L Imaging: Abdominal ultrasound Impression: 1. No evidence of acute right upper quadrant abnormalities. CT abdomen pelvis IMPRESSION: 1. Minimal colonic diverticulosis. There is very trace free fluid adjacent to a sigmoid colon diverticula and acute diverticulitis is not completely excluded; however, there is no significant fat stranding. No evidence of abscess or free air. 2. Indeterminate left renal density measuring up to 2.2 cm. Recommend renal ultrasound. If this finding is not seen or adequately characterized on ultrasound then a renal protocol CT or MRI would be an appropriate next step. 3. Questionable lesion in the ventral spinal canal at the level of T9. Recommend nonemergent thoracic spine MRI with intravenous contrast. Assessment: Abdominal pain improving History of GERD Possible diverticulitis History of colon polyps Plan: Discussed with Dr. Hernandez Protonix and Carafate Monitor labs Continue Flagyl Full liquid diet advance as tolerated Possible outpatient EGD discussed with patient's since his symptoms are improving, we will monitor patient Discussed plan with patient and RN Thank you for this consult Date of Service: Nov 24, 2024 Billing Provider: OIRN MCFARLAND Common Visit Codes: CONSULT ONLY Consultation Codes: [id number] CONSULT <45MIN ORIN MCFARLAND Nov 24, 2024 13:00
[2024-11-24 14:00] VITALS: BP 129/59; PULSE 75; RESP 18; TEMP 98; O2SAT 94
[2024-11-24 21:00] VITALS: BP 125/62; PULSE 63; RESP 18; TEMP 98.2; O2SAT 97
[2024-11-25] VITALS (10 sets, daily range): BP systolic 109–124; BP diastolic 57–70; PULSE 58–85; RESP 17–20; TEMP 97.4–98; O2SAT 95–99
[2024-11-25] MEDS: METOCLOPRAMIDE HCL 5MG/ml INJ 2ml VIAL IV ONE (13:00)
[2024-11-25 14:08] LABS: INR 1.01 (0.9-1.15); Partial Thromboplastin Time 31.7 SEC (24.5-34.5); Prothrombin Time 10.7 sec (9.3-11.8)
[2024-11-25] MEDS ORDERED: PANT40TA2 PO (14:45)
[2024-11-25] MEDS ORDERED: SUCR1TAB31 OR (14:46)
[2024-11-25] MEDS ORDERED: MIDAZOLAM HCL 5 MG/ML-1ML VIAL ONE (14:49)
[2024-11-25] MEDS ORDERED: SODIUM CHLORIDE LOCK 10 ML ONE (14:49)
--- NOTE | 2024-11-25 14:49 | DVHDS2 ---
Discharge Summary Date of Admission Nov 23, 2024 at 16:52 Date of Discharge: Nov 25, 2024 Admitting Diagnosis Abdominal pain, rule out gastritis Labs/Diagnostic Data: Laboratory Results Test 11/25/24 13:35 11/23/24 13:33 Prothrombin Time 10.7 sec (9.3-11.8) Prothrombin Time INR 1.01 (0.9-1.15) Activated Partial Thromboplast Time 31.7 SEC (24.5-34.5) White Blood Count 8.3 10^3/uL (4.4-10.8) Red Blood Count 3.90 10^6/uL (4.5-5.90) Hemoglobin 11.5 g/dL (13.5-17.5) Hematocrit 34.0 % (41.0-53.0) Mean Corpuscular Volume 87.1 fL (80.0-100.0) Mean Corpuscular Hemoglobin 29.4 pg (28.0-32.0) Mean Corpuscular Hemoglobin Concent 33.7 g/dL (32.0-36.0) Red Cell Distribution Width 15.3 % (11.8-14.3) Platelet Count 181 10^3/uL (140-450) Mean Platelet Volume 7.4 fL (6.9-10.8) Neutrophils (%) (Auto) 51.3 % (37.0-80.0) Lymphocytes (%) (Auto) 34.5 % (10.0-50.0) Monocytes (%) (Auto) 11.0 % (0.0-12.0) Eosinophils (%) (Auto) 2.6 % (0.0-7.0) Basophils (%) (Auto) 0.6 % (0.0-2.0) Neutrophils # (Auto) 4.3 10 ^3/uL (1.6-8.6) Lymphocytes # (Auto) 2.9 10 ^3/uL (0.4-5.4) Monocytes # (Auto) 0.9 10 ^3/uL (0-1.3) Eosinophils # (Auto) 0.2 10 ^3/uL (0-0.8) Basophils # (Auto) 0 10 ^3/uL (0-0.2) Nucleated Red Blood Cells 0.1 % Sodium Level 138 mmol/L (136-145) Potassium Level 3.8 mmol/L (3.5-5.1) Chloride Level 108 mmol/L (98-107) Carbon Dioxide Level 20 mmol/L (20-31) Anion Gap 10 (5-15) Blood Urea Nitrogen 11 mg/dL (9-23) Creatinine 0.86 mg/dL (0.700-1.30) Glomerular Filtration Rate Calc 102 mL/min (>90) BUN/Creatinine Ratio 12.8 (10.0-20.0) Serum Glucose 105 mg/dL (74-106) Calcium Level 9.5 mg/dL (8.7-10.4) Total Bilirubin 0.5 mg/dL (0.2-1.0) Aspartate Amino Transferase (AST) 20 U/L (13-40) Alanine Aminotransferase (ALT) 28 U/L (7-40) Alkaline Phosphatase 85 U/L (46-116) Troponin I High Sensitivity 3 ng/L (</=54) Total Protein 8.1 g/dL (5.7-8.2) Albumin 5.0 g/dL (3.2-4.8) Lipase 46 U/L (12-53) Other Laboratory Tests 11/23/24 13:33 Brief Hx & Hospital Course: History of Present Illness The patient was a 54-year-old male presenting to the emergency room with complaints of abdominal pain. Patient reports having nausea and vomiting two days ago, which has resolved as now able to tolerate oral intake. He continues to have epigastric pain with some radiation to his back, rated a 5/10. He reports the pain is similar to his previous admission to this hospital which was two weeks ago. Patient was a significant history of questionable gallbladder disease, CML, atrial fibrillation, diabetes mellitus, and hypertension. Course of hospitalization: Patient was started on PPI, clear liquid diet. Patient's anticoagulation was held for possible EGD. GI consultation was placed. Patient is plan for upper endoscopy today. According to the clasp machine operator, Dr. Hernandez, patient can be discharged afterwards. This was discussed with the patient. Patient is no longer symptomatic. Patient will be continued on PPI, Carafate with restarting his home medications. He was agreeable with discharge plan. All questions answered. Physical examination General: Alert and Oriented x3. No acute distress. Well-nourished. Obese Eyes: EOMI. Anicteric. HENT: Moist mucous membranes. Lungs: Clear to auscultation bilaterally. No accessory muscle use. Cardiovascular: Regular rate and rhythm. No murmur. No JVD. Abdomen: Soft, non-tender and non-distended. No palpable masses. Extremities: No edema. Non-tender. Skin: No rashes or lesions. Warm. Neurologic: No focal neurological deficits. CN II-XII grossly intact, but not individually tested. Psychiatric: Cooperative. Appropriate mood and affect. Total time spent with patient discussing and formulating plan of care: 35 minutes. This medical document was created using an electronic medical record system with [employer] dictation system. Although this document has been carefully reviewed, there may still be some phonetic and typographical errors. These areas are purely typographical due to imperfections of the software programs, and do not reflect any compromise in the patient's medical care. Consults/Reason for consult Gastroenterology: Abdominal pain Operations or Procedures 11/25/2024: EGD Condition at Discharge: Fair Final Diagnosis/Problems List Abdominal pain secondary to gastritis Secondary diagnosis: -primary hypertension -atrial fibrillation -obesity -dyslipidemia -diabetes mellitus -questionable T9 spine lesion Discharge Disposition: Home Discharge Instruct/Medications Diet: Consistent carbohydrate Activity: No Restrictions, As Tolerated Medications: Refer to medication reconciliation form 36 Discharge Statement: "Patient was advised to return to the ER or call 911 if any headaches, dizziness, shortness of breath, chest pain, abdominal pain, bleeding, fevers, or worsening of medical condition. Patient was counseled about treatment plan, medications, possible side effects, patientverbalized understanding. All questions were answered to the best of my ability. This discharge took greater then 30 minutes in planning, reviewing documentation, counseling the patient, and discussing with other team members." ASSESSMENT ASSESSMENT Assessment Date of Service: Nov 25, 2024 Billing Provider: RASHIDA ADAMS NP Common Visit Codes: 96810-WVP/OBS DISCH DAY >30min RASHIDA ADAMS NP Nov 25, 2024 14:49
[2024-11-25] MEDS ORDERED: fentaNYL CITRATE 100 MCG/2 ML VL ONE (14:50)
[2024-11-25] MEDS ORDERED: diphenhdrAMINE HCL 50 MG/1 ML VL ONE (14:50)
[2024-11-25] MEDS ORDERED: LIDOCAINE VISCOUS 2% 15ML UD ONE (15:43)
--- NOTE | 2024-11-25 16:05 | DVH ---
CHEST RADIOGRAPH Indication: EGD Technique: Single frontal view of the chest was obtained COMPARISON: CHEST PORTABLE on DOS: 11/11/22, CXRP on DOS: 11/11/22 FINDINGS: Lines and Tubes: None Lungs: Clear Pleura: No effusion. No pneumothorax. Cardiomediastinal contours: Unremarkable Bones: Unremarkable IMPRESSION: 1. No acute disease.
[2024-11-25] MEDS: MIDAZOLAM HCL 5 MG/ML-1ML VIAL IV ONE (16:31)
--- NOTE | 2024-11-25 17:12 | DVHOP2 ---
Operative Report DATE OF OPERATION: 11/25/24 PROCEDURE: Upper Endoscopy with biopsy. PREOPERATIVE INDICATION: The patient is a 54 -year-old male undergoing endoscopy for epigastric pain POSTOPERATIVE DIAGNOSES: 1. 1 cm sliding-type hiatal hernia with slightly irregular squamocolumnar junction 2. Mild gastritis involving the antrum and body of the stomach otherwise normal examination up to the 2nd and 3rd part of the duodenal PROCEDURE PERFORMED BY: Daly Hernandez GI NURSE: Eliceo SCOPE: Olympus videoendoscope. ASA CLASS: 2. PREOPERATIVE MEDICATIONS: Versed 3 mg, Fentanyl 75 mcg, Benadryl 50 mg I administered moderate sedation throughout this _7_ minutes procedure. An independent trained observer pushed medications at my direction, and monitored the patient's level of consciousness and physiological status throughout. PROCEDURE IN DETAIL: After obtaining an informed consent, the patient was placed on left lateral decubitus position. The patient was then sedated with the above medications. A bite block was placed between his teeth. The endoscope was then passed through the oropharynx, into the esophagus, and through the stomach and pylorus up to the second and third part of the duodenum. The endoscope was then withdrawn. The 2nd and 3rd part of the duodenum and the duodenal bulb were normal. Duodenal biopsies were obtained The pre-pyloric area antrum and body showed minimal gastritis. Gastric biopsies were obtained. On retroflexion the fundus cardia and angularis were normal. The endoscope was then withdrawn into the distal esophagus. Patient had a 1 cm sliding-type hiatal hernia with slightly irregular squamocolumnar junction no significant erosive esophagitis The remaining distal and proximal esophagus and oropharynx were unremarkable The patient tolerated the procedure well without difficulty. COMPLICATIONS : None SPECIMENS: Duodenal biopsies Gastric biopsies DISPOSITION: Transfer back to the floor Stable PLAN: 1. Await for biopsy result 2. Will place pt on Protonix 40 mg p.o. daily 3. Patient is cleared for discharge from GI point of view 4. Outpatient follow up with me in 4-6 weeks to review results and discuss f urther management 5. Avoid aspirin NSAIDs smoking alcohol DALY HERNANDEZ MD Nov 25, 2024 17:12
== END 2024-11-25 20:25 | disposition home or self-care (01) | DRG 241 ==
LOC: ER 12:33 → OVERFLOW 16:52 → WEST WING 11-25 02:36
PROVIDERS: ADMIT Nurse Practitioner Acute Care; ATTEND Nurse Practitioner Acute Care
PROC: 0DB68ZX Excision of Stomach, Via Natural or Artificial Opening Endoscopic, Diagnostic (ICD-10-PCS; 2024-11-25)
PROC: 0DB98ZX Excision of Duodenum, Via Natural or Artificial Opening Endoscopic, Diagnostic (ICD-10-PCS; principal; 2024-11-25 16:22)
DX: K29.70 Gastritis, unspecified, without bleeding (principal); E11.9 Type 2 diabetes mellitus without complications; K57.32 Diverticulitis of large intestine without perforation or abscess without bleeding; N28.89 Other specified disorders of kidney and ureter; E66.9 Obesity, unspecified; K21.9 Gastro-esophageal reflux disease without esophagitis; M89.8X8 Other specified disorders of bone, other site; K44.9 Diaphragmatic hernia without obstruction or gangrene; I48.91 Unspecified atrial fibrillation; E78.5 Hyperlipidemia, unspecified; I10 Essential (primary) hypertension; Z79.899 Other long term (current) drug therapy; Z79.01 Long term (current) use of anticoagulants; Z83.3 Family history of diabetes mellitus; Z68.42 Body mass index [BMI] 45.0-49.9, adult; Z86.0100 Personal history of colon polyps, unspecified; Z79.1 Long term (current) use of non-steroidal anti-inflammatories (NSAID); Z79.891 Long term (current) use of opiate analgesic
CPT/HCPCS: 36415; 43239; 71045; 74176; 76705; 80053; 83690; 84484; 85025; 85610; 85730; 87081; 96374; 96375; 96376; G0378; J2250; J2405

== ENCOUNTER 2024-11-27 19:35 | Emergency (ER) | payer MEDICAID ==
[~2024-11-27] VITALS: Ht 167.6 cm; Wt 125.0 kg
[~2024-11-27 19:35] MED LIST changes: +PANT40TA2 PO; +SUCR1TAB31 OR
[2024-11-27 19:46] VITALS: BP 156/78; PULSE 71; RESP 22; O2SAT 98
--- NOTE | 2024-11-27 20:00 | ED.PDOC ---
History of Present Illness HPI Comments 54-year-old male came to emergency room due to abdominal pain. Patient was just discharged 2 days ago, for abdominal pain, was admitted for 2 days, endoscopy done, diagnosed with gastritis and was sent home with pantoprazole and sucralfate. Patient states he is still experiences abdominal pain especially a fter meals. As of 5pm, he has been having constant epigastric abdominal pain, non radiating, 9/10 intensity, associated with nausea. Home medications offered no relief. Chief Complaint: Abdominal Pain Time Seen by MD: 19:59 Primary Care Provider: pt does not know Reviewed Notes: Nurses Notes Allergies: Coded Allergies: NO KNOWN ALLERGIES (Unverified , 11/11/22) Home Meds Active Scripts Sucralfate (CARAFATE) 1 Gm Tab, 1 GM OR BID for 30 Days, #60 TAB Prov:RASHIDA ADAMS HUM[employer]OURCES SUPERVISOR 11/25/24 Pantoprazole Sodium Sesquihydr (Protonix) 40 Mg Tab, 40 MG PO BID for 30 Days, #60 TAB Prov:RASHIDA ADAMS HUM[employer] RES[employer] SUPERVISOR 11/25/24 Reported Medications Atorvastatin Calcium (ATORVASTATIN CALCIUM) 20 Mg Tab, 1 TAB PO HS 11/06/24 Lisinopril (Lisinopril) 20 Mg Tab, 1 TAB PO BID 11/06/24 Empagliflozin (Jardiance) 25 Mg Tab, 10 MG PO DAILY 11/06/24 Spironolactone (Spironolactone) 25 Mg Tab, 1 TAB PO DAILY 11/06/24 Amlodipine Besylate (Amlodipine Besylate) 5 Mg Tab, 1 TAB PO DAILY 11/06/24 Apixaban Base (ELIQUIS) 5 Mg Tab, 1 TAB PO BID 11/06/24 Dasatinib (Sprycel) 20 Mg Tab, 100 MG PO DAILY, TAB 11/06/24 Metoprolol Tartrate (Lopressor) 25 Mg Tb, PO BID TAKE 1 TABLET BY MOUTH EVERY MOPRNING AND 1/2 TABLET NIGHTLY. 11/06/24 Information Source: Patient Mode of Arrival: Ambulatory Severity: Moderate Timing: Hours Duration: Since onset Review of Systems REVIEW OF SYSTEMS: No fever, no chills, or fatigue HEENT: No sore throat, no earache, no congestion, no neck pain. Cardiac: No chest pain. No palpitations. Lungs: No shortness of breath, no cough. GI: (+) nausea, no vomiting, no diarrhea, no constipation, (+) abdominal pain : No dysuria, frequency, or urgency. No hematuria. Musculoskeletal: No joint pain , no joint swelling, no extremity edema. Skin: No rash, no itching. Neuro: No headache, no dizziness, no weakness Vital Signs Vital Signs Date Time Temp Pulse Resp B/P (MAP) Pulse Ox O2 Delivery O2 Flow Rate FiO2 11/27/24 19:46 99.5 71 22 156/78 (104) 98 Physical Exam General: Awake, alert and oriented. No acute distress. Skin: Skin in warm, dry and intact. Appropriate color for ethnicity. Nailbeds pink with no cyanosis. HEENT: The head is normocephalic and atraumatic. Conjunctivae are clear without exudates or hemorrhage. Sclera is non-icteric. EOM are intact. No signs of nystagmus. Eyelids are normal in appearance without swelling or lesions. Oral mucosa is pink and moist Neck: The neck is supple with normal range of motion. No JVD. Cardiac: Heart rate and rhythm are normal. No murmurs, gallops, or rubs are auscultated. Respiratory: No signs of respiratory distress. Lung sounds are clear in all lobes bilaterally without rales, ronchi, or wheezes. Abdominal: Abdomen is soft, epigastric tenderness without distention. Bowel sounds are present and normoactive in all four quadrants. Extremities: Upper and lower extremities are atraumatic in appearance without deformity or edema. Neurological: The patient is awake, alert and oriented to person, place, and time with normal speech. Speech is clear. There is no facial asymmetry. Psychiatric: Appropriate mood and affect. Good judgement and insight. No visual or auditory hallucinations. Past Medical History PAST MEDICAL HISTORY: AFIB, Cancer, DM, High Lipids, HTN, PUD Surgical History: Appendectomy Family History Family History: Family hx of DM Social History Smoker: Non-Smoker Alcohol: Denies ETOH Use Drugs: Denies Drug Use Lives In: Home Was a procedure done? Was a procedure done?: No Differential Dx Considerations may include: Esophageal perforation, GERD, Gastritis, peptic ulcer disease, peptic ulcer disease with bowel or gastric perforation, pancreatitis, cholecystitis, abdominal pain, acute coronary syndrome, other X-Ray, Labs, Meds, VS Vital Signs Date Time Temp Pulse Resp B/P (MAP) Pulse Ox O2 Delivery O2 Flow Rate FiO2 11/27/24 19:46 99.5 71 22 156/78 (104) 98 Lab Test 11/27/24 20:02 Range/Units White Blood Count 8.3 4.4-10.8 10^3/uL Red Blood Count 3.90 L 4.5-5.90 10^6/uL Hemoglobin 11.5 L 13.5-17.5 g/dL Hematocrit 33.8 L 41.0-53.0 % Mean Corpuscular Volume 86.6 80.0-100.0 fL Mean Corpuscular Hemoglobin 29.5 28.0-32.0 pg Mean Corpuscular Hemoglobin Concent 34.1 32.0-36.0 g/dL Red Cell Distribution Width 14.9 H 11.8-14.3 % Platelet Count 233 140-450 10^3/uL Mean Platelet Volume 7.6 6.9-10.8 fL Neutrophils (%) (Auto) 59.1 37.0-80.0 % Lymphocytes (%) (Auto) 31.8 10.0-50.0 % Monocytes (%) (Auto) 7.2 0.0-12.0 % Eosinophils (%) (Auto) 1.4 0.0-7.0 % Basophils (%) (Auto) 0.5 0.0-2.0 % Neutrophils # (Auto) 4.9 1.6-8.6 10 ^3/uL Lymphocytes # (Auto) 2.7 0.4-5.4 10 ^3/uL Monocytes # (Auto) 0.6 0-1.3 10 ^3/uL Eosinophils # (Auto) 0.1 0-0.8 10 ^3/uL Basophils # (Auto) 0 0-0.2 10 ^3/uL Nucleated Red Blood Cells 0.1 % Sodium Level 141 136-145 mmol/L Potassium Level 4.3 3.5-5.1 mmol/L Chloride Level 109 H 98-107 mmol/L Carbon Dioxide Level 24 20-31 mmol/L Anion Gap 8 5-15 Blood Urea Nitrogen 15 9-23 mg/dL Creatinine 0.92 0.700-1.30 mg/dL Glomerular Filtration Rate Calc 98 >90 mL/min BUN/Creatinine Ratio 16.3 10.0-20.0 Serum Glucose 118 H 74-106 mg/dL Calcium Level 9.9 8.7-10.4 mg/dL Total Bilirubin 0.5 0.2-1.0 mg/dL Aspartate Amino Transferase (AST) 18 13-40 U/L Alanine Aminotransferase (ALT) 27 7-40 U/L Alkaline Phosphatase 89 46-116 U/L Troponin I High Sensitivity 3 L </=54 ng/L Total Protein 7.7 5.7-8.2 g/dL Albumin 4.9 H 3.2-4.8 g/dL Time of 1ST Reevaluation: 19:55 Reevaluation 1ST: Unchanged Patient Education/Counseling: Diagnosis, Treatment Family Education/Counseling: No Family Present Departure 1 Departure Time of Disposition: 21:33 Impression: Primary Impression: Abdominal pain Additional Impression: Eloped from emergency department Disposition: 07 LEFT AWOL/ELOPED Condition: Stable Comments Patient eloped from the emergency department prior to discussing lab results, re-evaluation, and discussing discharge plan. He stated to the nurse that his pain had resolved prior to leaving. Extensive evaluation was performed in attempt to identify or rule out: (See differential diagnosis section) The following tests were ordered, and results were reviewed by me: (See diagnostic results section) The following test were independently interpreted by me: N/A I reviewed and agreed with the following test results read by other providers: N/A I reviewed the following notes from the pt's past medical encounters: Previous visit for abdominal pain, gastritis with endoscopy performed. Additional information was gathered from interviewing the following independent historians: N/A Discussion of management or test interpretation with external physician/other qualified health plant care worker: N/A Addressed one or more chronic illnesses with severe exacerbation, progression, or side effects of treatment: Gastritis, GERD, hiatal hernia Decision regarding hospitalization or escalation of hospital level of care: Risks and benefits of admission for further treatment of patient's condition was considered however due to patient's stable condition patient will be discharged to follow up closely or return to care for worsening of condition or inability to follow up. Critical Care Note Critical Care Time?: No Stability Stability form required: No Heart Score Heart Score: Heart Score Response (Comments) Value History N/A 0 EKG N/A 0 Age N/A 0 Risk Factors N/A 0 Troponin N/A 0 Total 0 I personally scribed for BRIGETTE JAIME MD ([email or web address]) on 11/27/24 at 20:00. Electronically submitted by Trey Cee ([email or web address]). BRIGETTE JAIME MD Nov 27, 2024 20:00
[2024-11-27 20:21] LABS: Basophils # (auto) 0 10 ^3/uL (0-0.2); Basophils % (auto) 0.5 % (0.0-2.0); Eosinophils # (auto) 0.1 10 ^3/uL (0-0.8); Eosinophils % (auto) 1.4 % (0.0-7.0); Hematocrit 33.8 % (41.0-53.0); Hemoglobin 11.5 g/dL (13.5-17.5); Lymphocytes # (auto) 2.7 10 ^3/uL (0.4-5.4); Lymphocytes % (auto) 31.8 % (10.0-50.0); Mean Corpuscular Hemoglobin 29.5 pg (28.0-32.0); Mean Corpuscular Hgb Conc. 34.1 g/dL (32.0-36.0); Mean Corpuscular Volume 86.6 fL (80.0-100.0); Monocytes # (auto) 0.6 10 ^3/uL (0-1.3); Monocytes % (auto) 7.2 % (0.0-12.0); Neutrophils # (auto) 4.9 10 ^3/uL (1.6-8.6); Neutrophils % (auto) 59.1 % (37.0-80.0); Nucleated Red Blood Cells % 0.1 %; Platelet Count (auto) 233 10^3/uL (140-450); Red Cell Distribution Width 14.9 % (11.8-14.3); White Blood Cell 8.3 10^3/uL (4.4-10.8)
[2024-11-27 20:30] LABS: Alanine Aminotransferase 27 U/L (7-40); Alkaline Phosphatase 89 U/L (46-116); Anion Gap 8 (5-15); Aspartate Aminotransferase 18 U/L (13-40); BUN/Creatinine Ratio 16.3 (10.0-20.0); Bilirubin, Total 0.5 mg/dL (0.2-1.0); Blood Urea Nitrogen 15 mg/dL (9-23); Calcium 9.9 mg/dL (8.7-10.4); Carbon Dioxide 24 mmol/L (20-31); Potassium 4.3 mmol/L (3.5-5.1); Sodium 141 mmol/L (136-145); Total Protein 7.7 g/dL (5.7-8.2)
[2024-11-27] MEDS: ONDANSETRON ODT 4 MG TAB PO ONE (20:37)
[2024-11-27] MEDS: HYDROcodone-ACET 7.5/325MG TAB PO ONE (20:37)
[2024-11-27] MEDS: MAALOX PLUS or MAALOX 30 ML PO ONE (20:37)
[2024-11-27] MEDS: LIDOCAINE VISCOUS 2% 15ML UD PO ONE (20:37)
[2024-11-27 20:40] LABS: Albumin 4.9 g/dL (3.2-4.8); Chloride 109 mmol/L (98-107); Glucose 118 mg/dL (74-106)
--- NOTE | 2024-11-27 20:42 | DVH ---
Exam: CT CT AB PEL WO CON-NO ORAL OR IV History: epigastric abdominal pain s/p upper endoscopy Comparison Study: None available at time of dictation. TECHNIQUE: Multidetector CT of the abdomen and pelvis without IV contrast. Axial, coronal and sagitta l multiplanar reformats were obtained from the axial data set by the technologist. Radiation Dose Information: CT Dose: CTDI volume is 26.37 mGy. Dose-length product is 1647.93 mGy*cm FINDINGS: Lung bases are clear. Heart size is within normal limits. Small pericardial effusion. Liver, spleen, gallbladder, pancreas and adrenal glands are unremarkable. 2.1 cm left renal lower pole hyperdense lesion. Otherwise, Kidneys, ureters and urinary bladder are u nremarkable. Prostate measures 3.7 x 4.4 x 4.1 cm. Stomach is unremarkable. Material within the stomach. Small bowel loops are unremarkable. Appendix is not definitely visualized. Large bowel is unremarkable. No evidence of intraperitoneal free air or free fluid. No evidence of aortic aneurysm. No significant lymphadenopathy. Small fat containing umbilical hernia. Small fat containing bilateral inguinal hernias. Minimal subc utaneous fat edema. No destructive osseous lesions are noted. Sclerotic focus over the right sacrum w hich may represent a bone island with a blastic lesion not excluded. IMPRESSION: No evidence of acute abdominopelvic abnormalities. Enlarged prostate. Recommend correlation with PSA. Ingested material within the stomach. Otherwise the stomach is unremarkable. 2.1 cm left renal lower pole hyperdense lesion which may represent a hemorrhagic or proteinaceous cy sts. Ultrasound may be considered for further evaluation.
== END 2024-11-27 20:38 | disposition left against medical advice (07) ==
LOC: ER 19:35
DX: R10.13 Epigastric pain (principal); R11.0 Nausea; I10 Essential (primary) hypertension; E11.9 Type 2 diabetes mellitus without complications; I48.91 Unspecified atrial fibrillation; E78.5 Hyperlipidemia, unspecified; Z90.49 Acquired absence of other specified parts of digestive tract; Z79.01 Long term (current) use of anticoagulants; Z79.84 Long term (current) use of oral hypoglycemic drugs; Z79.899 Other long term (current) drug therapy; Z87.19 Personal history of other diseases of the digestive system
CPT/HCPCS: 36415; 74176; 80053; 84484; 85025

== ENCOUNTER 2024-12-20 19:09 | Emergency (ER) | payer MEDICAID ==
[~2024-12-20] VITALS: Ht 167.6 cm; Wt 118.1 kg
--- NOTE | 2024-12-20 19:38 | ED.PDOC ---
GI ASSESSMENT HPI Comments 54 year old male came to ER due to abdominal pain. Patient has been having recurrent episodes of abdominal pain for the past 2 months, usually occurring once/ week, usually few hours after meals. For the past 4 hours, he has been having constant upper abdominal pain, progressive, worsening, non radiating associated with nausea and vomiting. Last bowel movement was earlier today. Chief Complaint: Abdominal Pain Time Seen by MD: 19:37 Primary Care Provider: pt does not know Reviewed Notes: Nurses Notes Allergies: Coded Allergies: NO KNOWN ALLERGIES (Unverified , 11/11/22) Home Meds Active Scripts Sucralfate (CARAFATE) 1 Gm Tab, 1 GM OR BID for 30 Days, #60 TAB Prov:RASHIDA ADAMS [employer] 11/25/24 Pantoprazole Sodium Sesquihydr (Protonix) 40 Mg Tab, 40 MG PO BID for 30 Days, #60 TAB Prov:RASHIDA ADAMS [employer] 11/25/24 Reported Medications Atorvastatin Calcium (ATORVASTATIN CALCIUM) 20 Mg Tab, 1 TAB PO HS 11/06/24 Lisinopril (Lisinopril) 20 Mg Tab, 1 TAB PO BID 11/06/24 Empagliflozin (Jardiance) 25 Mg Tab, 10 MG PO DAILY 11/06/24 Spironolactone (Spironolactone) 25 Mg Tab, 1 TAB PO DAILY 11/06/24 Amlodipine Besylate (Amlodipine Besylate) 5 Mg Tab, 1 TAB PO DAILY 11/06/24 Apixaban Base (ELIQUIS) 5 Mg Tab, 1 TAB PO BID 11/06/24 Dasatinib (Sprycel) 20 Mg Tab, 100 MG PO DAILY, TAB 11/06/24 Metoprolol Tartrate (Lopressor) 25 Mg Tb, PO BID TAKE 1 TABLET BY MOUTH EVERY MOPRNING AND 1/2 TABLET NIGHTLY. 11/06/24 Information Source: Patient Mode of Arrival: Ambulatory Timing: Hours (4) Duration: Since onset Prehospital treatment: None Quality: Aching, Cramping Vomitus: Watery Stool: Normal Severity: Moderate Recent: None Recent Hx of: Abdominal Surgery Pain Location: Epigastric Modifying Factors: Nothing Associated sign and symptoms: Nausea, Vomiting, Abdominal Pain Past Medical History PAST MEDICAL HISTORY: AFIB, Cancer (CML), DM, High Lipids, HTN, PUD Surgical History: Appendectomy Family History Family History: Family hx of DM Social History Smoker: Non-Smoker Alcohol: Denies ETOH Use Drugs: Denies Drug Use Lives In: Home Constitutional: denies: chills, diaphoresis, fatigue, fever, malaise, sweats, weakness, others EENTM: denies: blurred vision, double vision, ear bleeding, ear discharge, ear drainage, ear pain, ear ringing, eye pain, eye redness, hearing loss, mouth pain, mouth swelling, nasal discharge, nose bleeding, nose congestion, nose pain, photophobia, tearing, throat pain, throat swelling, voice changes, others Respiratory: denies: cough, hemoptysis, orthopnea, SOB at rest, shortness of breath, SOB with excertion, stridor, wheezing, others Cardiovascular: denies: chest pain, dizzy spells, diaphoresis, Dyspnea on exertion, edema, irregular heart beat, left arm pain, lightheadedness, palpitations, PND, syncope, others Gastrointestinal: reports: abdominal pain, nausea, vomiting; denies: abdomen distended, blood streaked bowels, constipated, diarrhea, dysphagia, difficulty swallowing, hematemesis, melena, poor appetite, poor fluid intake, rectal bleeding, rectal pain, others Genitourinary: denies: burning, dysuria, flank pain, frequency, hematuria, incontinence, penile discharge, penile sore, pain, testicle pain, testicle swelling, urgency, others Neurological: denies: dizziness, fainting, headache, left sided numbness, left sided weakness, numbness, paresthesia, pre-existing deficit, right sided numbness, right sided weakness, seizure, speech problems, tingling, tremors, weakness, others Musculoskeletal: denies: back pain, gout, joint pain, joint swelling, muscle pain, muscle stiffness, neck pain, others Integumetry: denies: bruises, change in color, change in hair/nails, dryness, laceration, lesions, lumps, rash, wounds, others Allergic/Immunocompromised: denies: Difficulty Healing, Frequent Infections, Hives, Itching, others Hematologic/Lymphatic: denies: anemia, blood clots, easy bleeding, easy bruising, swollen glands, others Endocrine: denies: excessive hunger, excessive sweating, excessive thirst, excessive urination, flushing, intolerance to cold, intolerance to heat, unexplained weight gain, unexplained weight loss, others Psychiatric: denies: anxiety, bipolar disorder, depression, hopeless, panic disorder, schizophrenia, sleepless, suicidal, others Physical Exam General Appearance: No Apparent Distress, Normal HEENT: Normal ENT Inspection, Pharynx Normal, TMs Normal Neck: Full Range of Motion, Non-Tender, Normal, Normal Inspection Respiratory: Chest Non-Tender, Lungs Clear, No Accessory Muscle Use, No Respiratory Distress, Normal Breath Sounds Cardiovascular: No Edema, No JVD, No Murmur, No Gallop, Normal Peripheral Pulses, Regular Rate/Rhythm Breast Exam: Deferred Gastrointestinal: Epigastric, No Organomegaly, No Pulsatile Mass, Normal Bowel Sounds, Soft, Tenderness Genitalia: Deferred Pelvic: Deferred Rectal: Deferred Extremities: No calf tenderness, Normal capillary refill, Normal inspection, Normal range of motion, Non-tender, No pedal edema Musculoskeletal : Apperance: Normal Neurologic: Alert, setter helper II-XII nml as Tested, No Motor Deficits, Normal Affect, Normal Mood, No Sensory Deficits Cerebellar Function: Normal Reflexes: Normal Skin: Dry, Normal Color, Warm Lymphatic: No Adenopathy EKG EKG : Pulse Rate (adult): 65 Cardiac Rhythm: NSR Was a procedure done? Was a procedure done?: No GI differential Dx Differential Diagnosis: Cholecystitis, Constipation, Diverticular disease, Gastritis/PUD, Gastroenteritis, Hernia, Inflammatory BD, Ischemic Bowel, Pancreatitis, UTI, Urolithiasis, Dehydration, Diabetes/ DKA, Electrolyte Imbalance, Food Poisoning, Hypovolemia, Impaction, Ischemic Bowel, Mass, Esophageal Varicies, Stress Ulcer, Kidney Stone, Other (incarcerated hernia) X-Ray, Labs, Meds, VS Vital Signs Date Time Temp Pulse Resp B/P (MAP) Pulse Ox O2 Delivery O2 Flow Rate FiO2 12/20/24 21:05 65 12/20/24 20:58 65 12/20/24 20:58 82 20 138/80 12/20/24 20:29 73 20 133/73 12/20/24 20:14 98.9 73 20 133/73 (93) 96 98.9 12/20/24 20:14 73 20 96 Room Air 12/20/24 19:24 97.8 74 18 110/84 (93) 98 97.8 Lab Test 12/20/24 20:19 Range/Units White Blood Count 9.3 4.4-10.8 10^3/uL Red Blood Count 4.45 L 4.5-5.90 10^6/uL Hemoglobin 12.7 L 13.5-17.5 g/dL Hematocrit 39.1 L 41.0-53.0 % Mean Corpuscular Volume 88.0 80.0-100.0 fL Mean Corpuscular Hemoglobin 28.5 28.0-32.0 pg Mean Corpuscular Hemoglobin Concent 32.4 32.0-36.0 g/dL Red Cell Distribution Width 15.3 H 11.8-14.3 % Platelet Count 244 140-450 10^3/uL Mean Platelet Volume 7.7 6.9-10.8 fL Neutrophils (%) (Auto) 66.2 37.0-80.0 % Lymphocytes (%) (Auto) 26.1 10.0-50.0 % Monocytes (%) (Auto) 5.9 0.0-12.0 % Eosinophils (%) (Auto) 1.5 0.0-7.0 % Basophils (%) (Auto) 0.3 0.0-2.0 % Neutrophils # (Auto) 6.1 1.6-8.6 10 ^3/uL Lymphocytes # (Auto) 2.4 0.4-5.4 10 ^3/uL Monocytes # (Auto) 0.5 0-1.3 10 ^3/uL Eosinophils # (Auto) 0.1 0-0.8 10 ^3/uL Basophils # (Auto) 0 0-0.2 10 ^3/uL Nucleated Red Blood Cells 0.3 % Sodium Level 138 136-145 mmol/L Potassium Level 3.6 3.5-5.1 mmol/L Chloride Level 106 98-107 mmol/L Carbon Dioxide Level 23 20-31 mmol/L Anion Gap 9 5-15 Blood Urea Nitrogen 12 9-23 mg/dL Creatinine 1.00 0.700-1.30 mg/dL Glomerular Filtration Rate Calc 88 >90 mL/min BUN/Creatinine Ratio 12.0 10.0-20.0 Serum Glucose 116 H 74-106 mg/dL Calcium Level 9.8 8.7-10.4 mg/dL Total Bilirubin 0.5 0.2-1.0 mg/dL Aspartate Amino Transferase (AST) 35 13-40 U/L Alanine Aminotransferase (ALT) 140 H 7-40 U/L Alkaline Phosphatase 126 H 46-116 U/L Total Protein 8.1 5.7-8.2 g/dL Albumin 5.0 H 3.2-4.8 g/dL Lipase 41 12-53 U/L Current Medications Medications (Trade) Dose Ordered Sig/Caroline Route Start Time Stop Time Status Last Admin Al Hydrox/Mg Hydrox/Simethicone (Maalox Plus) 15 ml ONCE ONCE PO 12/20/24 19:30 12/20/24 19:32 DC 12/20/24 19:49 Ondansetron HCl (Zofran Po) 4 mg ONCE ONCE PO 12/20/24 19:30 12/20/24 19:32 DC 12/20/24 19:49 Ondansetron HCl (Zofran) 4 mg ONCE ONCE IV 12/20/24 20:00 12/20/24 20:02 DC 12/20/24 20:28 Morphine Sulfate 2 mg ONCE ONCE IV 12/20/24 20:00 12/20/24 20:02 DC 12/20/24 20:29 Sodium Chloride 1,000 ml @ 1,000 mls/hr Q1H ONCE IV 12/20/24 21:30 12/20/24 22:29 DC 12/20/24 21:36 Haloperidol Lactate (Haldol) 5 mg ONCE ONCE IM 12/20/24 21:30 12/20/24 21:31 DC 12/20/24 21:35 Diphenhydramine HCl (Benadryl Injection) 50 mg ONCE ONCE IM 12/20/24 21:30 12/20/24 21:31 DC 12/20/24 21:36 Pantoprazole Sodium (Protonix) 40 mg ONCE ONCE IV 12/20/24 21:45 12/20/24 21:46 DC 12/20/24 21:51 Exam: CT CT AB PEL WO CON-NO ORAL OR IV History: pain Comparison Study: None available at time of dictation. TECHNIQUE: Multidetector CT of the abdomen was performed from lung bases to pubic symphysis. Imaging was performed without IV contrast. Axial, coronal and sagittal multiplanar reformats were obtained from the axial data set by the tech nologist. Radiation Dose Information: CT Dose: CTDI volume is 26.6 mGy. Dose-length product is 1689.03 mGy*cm FINDINGS: Evaluation of solid organs is limited due to lack of intravenous contrast use. Findings: Lung Bases: No acute or significant lung base finding. Normal heart size. No pleural or pericardial effusion. Liver: The liver is normal in size. No focal lesions. Gallbladder and Biliary Tree: Unremarkable Spleen: Unremarkable Pancreas: The pancreas is grossly normal in appearance. Adrenal Glands: Unremarkable Kidneys: Kidneys are grossly normal without calculi or hydronephrosis. Bladder: Grossly unremarkable for degree of distention. Bowel: The stomach is grossly normal in appearance. Small bowel and colon are normal in caliber and distribution. The appendix is not visualized; however, no secondary findings of acute appendicitis identified. Ascites: Absent Lymphadenopathy: No mesenteric, retroperitoneal or periportal lymphadenopathy. Abdominal Wall and Mesentery: Unremarkable. Vasculature: The visualized abdominal aorta is normal in size and caliber. Evaluation of abdominal and pelvic vessels is limited due to lack of intravenous contrast. Pelvic Organs: Unremarkable Musculoskeletal: No aggressive focal bony lesions, acute fractures or d islocation. Soft tissues: Unremarkable IMPRESSION: 1. No findings bowel obstruction 2. No calcified gallstones. Radiation optimization: All CT scans at this facility use at least one of these dose optimization techniques: automated exposure control mA and/or kV adjustment per patient size (includes targeted exams where dose is matched to clinical indication) or iterative reconstruction. HS:Y Time of 1ST Reevaluation: 19:29 Reevaluation 1ST: Unchanged Patient Education/Counseling: Diagnosis, Treatment, Prognosis, Need For Follow Up Family Education/Counseling: No Family Present Additional Information -Reviewed patient's previous visit(s): ED physician notes Nov 06, 2024, November 23-2024, diagnosed with Abdominal pain secondary to gastritis, November 27, 2024 - The following tests were ordered, and results were reviewed by me: CT abdomen /pelvis 11/27/2024 No evidence of acute abdominopelvic abnormalities.; gall bladder SUJATHA done 11/23/2024 1. No evidence of acute right upper quadrant abnormalities. - Additional information was gathered from interviewing the following independent Historian: - I reviewed and agreed with the following test results read by other provider: - I discussed treatments and results with medical personnel and: patient Comprehensive systems review obtained and negative except for what is stated in the HPI. pt was recently admitted and had an EGD, which showed HH and gastritis. CT this time does not show anything acute. he is stable for discharge Departure 1 Departure Time of Disposition: 22:37 Impression: Primary Impression: Chronic abdominal pain Additional Impression: Gastritis Qualified Codes: K29.50 - Unspecified chronic gastritis without bleeding Disposition: HOME / SELF CARE / HOMELESS Condition: Good e-Prescriptions Pantoprazole Sodium Sesquihydr (Protonix) 40 Mg Tab 40 MG PO DAILY, #30 TAB Prov: ARIADNE DSOUZA MD 12/20/24 Discharged With: Self Critical Care Note Critical Care Time?: Yes (55 min-critical care time only) Critical care comment: due to concerns for patient's condition deteriorating, the care required my highest level of attention and readiness to intervene. i assessed the patient's condition, ordered the proper tests and treatments, reassessed for response and reviewed the results. i communicated with medical personnel and formulated a plan of care. total critical care time does not include any procedures Stability Stability form required: No Heart Score Heart Score: Heart Score Response (Comments) Value History N/A 0 EKG N/A 0 Age N/A 0 Risk Factors N/A 0 Troponin N/A 0 Total 0 I personally scribed for ARIADNE DSOUZA MD [facility] on 12/20/24 at 19:38. Electronically submitted by Trey Cee ([facility] I personally scribed for ARIADNE DSOUZA MD ([facility]) on 12/20/24 at 19:39. Electronically submitted by Trey Cee ([facility]). I personally scribed for ARIADNE DSOUZA MD ([facility]) on 12/20/24 at 20:36. Electronically submitted by Trey Cee ([facility]). I personally scribed for ARIADNE DSOUZA MD ([facility]) on 12/20/24 at 21:05. Electronically submitted by [facility] Cee ([facility] I personally scribed for ARIADNE DSOUZA MD ([facility]) on 12/20/24 at 21:11. Electronically submitted by Trey Cee ([facility]). ARIADNE DSOUZA MD Dec 20, 2024 19:38
[2024-12-20] MEDS: MAALOX PLUS or MAALOX 30 ML PO ONE (19:49)
[2024-12-20] MEDS: ONDANSETRON ODT 4 MG TAB PO ONE (19:49)
[2024-12-20] MEDS: ONDANSETRON HCL 4 MG/2 ML VIAL IV ONE (20:28)
[2024-12-20] MEDS: MORPHINE SULFATE INJ 2 MG/ml SYRG IV ONE (20:29)
--- NOTE | 2024-12-20 20:33 | DVH ---
Exam: CT CT AB PEL WO CON-NO ORAL OR IV History: pain Comparison Study: None available at time of dictation. TECHNIQUE: Multidetector CT of the abdomen was performed from lung bases to pubic symphysis. Imaging was performed without IV contrast. Axial, coronal and sagittal multiplanar reformats were obtained fr om the axial data set by the technologist. Radiation Dose Information: CT Dose: CTDI volume is 26.6 mGy. Dose-length product is 1689.03 mGy*cm FINDINGS: Evaluation of solid organs is limited due to lack of intravenous contrast use. Findings: Lung Bases: No acute or significant lung base finding. Normal heart size. No pleural or pericardial effusion. Liver: The liver is normal in size. No focal lesions. Gallbladder and Biliary Tree: Unremarkable Spleen: Unremarkable Pancreas: The pancreas is grossly normal in appearance. Adrenal Glands: Unremarkable Kidneys: Kidneys are grossly normal without calculi or hydronephrosis. Bladder: Grossly unremarkable for degree of distention. Bowel: The stomach is grossly normal in appearance. Small bowel and colon are normal in caliber and d istribution. The appendix is not visualized; however, no secondary findings of acute appendicitis id entified. Ascites: Absent Lymphadenopathy: No mesenteric, retroperitoneal or periportal lymphadenopathy. Abdominal Wall and Mesentery: Unremarkable. Vasculature: The visualized abdominal aorta is normal in size and caliber. Evaluation of abdominal a nd pelvic vessels is limited due to lack of intravenous contrast. Pelvic Organs: Unremarkable Musculoskeletal: No aggressive focal bony lesions, acute fractures or dislocation. Soft tissues: Unremarkable IMPRESSION: 1. No findings bowel obstruction 2. No calcified gallstones. Radiation optimization: All CT scans at this facility use at least one of these dose optimization aditya hniques: automated exposure control mA and/or kV adjustment per patient size (includes targeted exam s where dose is matched to clinical indication) or iterative reconstruction. HS:Y
[2024-12-20 20:36] LABS: Basophils # (auto) 0 10 ^3/uL (0-0.2); Basophils % (auto) 0.3 % (0.0-2.0); Eosinophils # (auto) 0.1 10 ^3/uL (0-0.8); Eosinophils % (auto) 1.5 % (0.0-7.0); Hematocrit 39.1 % (41.0-53.0); Hemoglobin 12.7 g/dL (13.5-17.5); Lymphocytes # (auto) 2.4 10 ^3/uL (0.4-5.4); Lymphocytes % (auto) 26.1 % (10.0-50.0); Mean Corpuscular Hemoglobin 28.5 pg (28.0-32.0); Mean Corpuscular Hgb Conc. 32.4 g/dL (32.0-36.0); Monocytes # (auto) 0.5 10 ^3/uL (0-1.3); Monocytes % (auto) 5.9 % (0.0-12.0); Neutrophils # (auto) 6.1 10 ^3/uL (1.6-8.6); Neutrophils % (auto) 66.2 % (37.0-80.0); Nucleated Red Blood Cells % 0.3 %; Platelet Count (auto) 244 10^3/uL (140-450); Red Blood Cells 4.45 10^6/uL (4.5-5.90); Red Cell Distribution Width 15.3 % (11.8-14.3); White Blood Cell 9.3 10^3/uL (4.4-10.8)
[2024-12-20 20:50] LABS: Anion Gap 9 (5-15); Aspartate Aminotransferase 35 U/L (13-40); Blood Urea Nitrogen 12 mg/dL (9-23); Calcium 9.8 mg/dL (8.7-10.4); Carbon Dioxide 23 mmol/L (20-31); Chloride 106 mmol/L (98-107); Lipase 41 U/L (12-53); Potassium 3.6 mmol/L (3.5-5.1); Sodium 138 mmol/L (136-145); Total Protein 8.1 g/dL (5.7-8.2)
[2024-12-20 20:51] LABS: Bilirubin, Total 0.5 mg/dL (0.2-1.0)
[2024-12-20 20:52] LABS: Alanine Aminotransferase 140 U/L (7-40); Alkaline Phosphatase 126 U/L (46-116); Glucose 116 mg/dL (74-106)
[2024-12-20] MEDS ORDERED: METOCLOPRAMIDE HCL 5MG/ml INJ 2ml VIAL IV ONE (21:30)
[2024-12-20] MEDS: PANTOPRAZOLE 40 MG/10 ML VIAL INJ IV ONE ×2 (21:34→21:51)
[2024-12-20] MEDS: HALOPERIDOL LACTATE 5 MG/ML INJ VIAL IM ONE (21:35)
[2024-12-20] MEDS: SODIUM CHLORIDE 0.9% 1,000 ML IV ONE (21:36)
[2024-12-20] MEDS: diphenhdrAMINE HCL 50 MG/1 ML VL IM ONE (21:36)
[2024-12-20] MEDS ORDERED: PANT40TA2 PO (22:38)
[2024-12-20] MEDS: fentaNYL CITRATE 100 MCG/2 ML VL IM ONE (22:46)
[2024-12-20 23:25] LABS: Urine Bacteria None Seen /hpf (None Seen)
[2024-12-20 23:28] VITALS: BP 132/62; PULSE 70; RESP 18; TEMP 97.9; O2SAT 95
[2024-12-20 23:55] LABS: Opiate Scree,Urine Neg (NEGATIVE)
[2024-12-21 00:08] LABS: Amphetamine Screen, Urine Neg (NEGATIVE); Barbiturate Scree,Urine Neg (NEGATIVE); Benzodiazephine Screen, Urine Neg (NEGATIVE); Cannabinoid Screen, Urine Neg (NEGATIVE); Cocaine Screen, Urine Neg (NEGATIVE); Phencyclidine Screen, Urine Neg (NEGATIVE)
[2024-12-21 01:01] LABS: Urine Blood Negative /uL (Negative); Urine Clarity Clear (Clear); Urine Color Light-Yellow (Yellow); Urine Protein, UAD TRACE (Negative); Urine Specific Gravity 1.036 (1.001-1.035); Urine Squamous Epithelial Cell None Seen /hpf (<5); Urine Urobilinogen Normal (Negative); Urine WBC 2 /HPF (0-3); Urine pH 5.5 (5.0-9.0)
--- NOTE | 2024-12-22 12:16 | ECG ---
[facility] Test Date: 2024-12-20 Test Time: 20:58:09 Pat Name: GABRIEL ROE Department: TRIAGE Room: Gender: M Recycler: ER : [id number] Requested By: ARIADNE DSOUZA Order Number: [id number] Reading MD: Montrell Swartz Measurements Intervals [place] Rate: 65 P: 0 WI: 145 QRS: 17 QRSD: 110 T: 26 QT: 421 QTc: 438 Interpretive Statements Sinus rhythm Abnormal R-wave progression, early transition Electronically Signed On 12-24-2024 22:00:05 PDT by Montrell Swartz Please click the below link to view image of tracing.
== END 2024-12-20 23:38 | disposition home or self-care (01) ==
LOC: ER 19:09
DX: R10.10 Upper abdominal pain, unspecified (principal); K29.70 Gastritis, unspecified, without bleeding; E11.9 Type 2 diabetes mellitus without complications; I48.91 Unspecified atrial fibrillation; G89.29 Other chronic pain; I10 Essential (primary) hypertension; Z87.11 Personal history of peptic ulcer disease; Z90.49 Acquired absence of other specified parts of digestive tract; Z79.899 Other long term (current) drug therapy; E78.5 Hyperlipidemia, unspecified; Z79.84 Long term (current) use of oral hypoglycemic drugs; Z79.01 Long term (current) use of anticoagulants
CPT/HCPCS: 36415; 74176; 80053; 80307; 81001; 83690; 85025; 87086; 93005; 96361; 96372; 96374; 96375; 99285; J1200; J1630; J2270; J2405; J2470; J3010; J7030; Q0162